=== PATIENT | female | born 1960 | race Caucasian/White ===

== ENCOUNTER 2023-01-11 13:30 | Day surgery (SDC) | payer OTHER, SELFPAY ==
[2023-01-11 14:22] VITALS: BP 131/73; PULSE 69; RESP 131; TEMP 37; BMI 28.1
[2023-01-11] MEDS: LACTATED RINGERS 1,000 ML 42 ML IV (14:49)
[2023-01-11 14:51] VITALS: BMI 28.1
--- NOTE | 2023-01-11 14:54 | PM.HP.1 ---
History of Present Illness History of Present Illness Date Patient Seen: 01/11/23 Chief complaint: Dx Colonoscopy Narrative: History of colon polyps with last colonoscopy 5 years ago Patient History Medical History (Updated 01/11/23 @ 14:21 by Adalgisa Feng RN) Anxiety Bursitis disorder Cyst, meniscus, knee Meniscus, medial, posterior horn derangement Surgical History (Updated 01/11/23 @ 14:51 by Adalgisa Feng RN) History of bunionectomy Family & Social History Social History: household members spouse Tobacco & Substance use: Smoking Status Never smoker alcohol intake frequency a few times a week Substance Use Type does not use Meds Home Medications and Allergies Home Medications Medication Instructions Recorded Confirmed Type venlafaxine besylate See Rx Instructions .Route .COMPLEX 01/11/23 01/11/23 History Allergies Allergy/AdvReac Type Severity Reaction Status Date / Time Penicillins Allergy Swelling Verified 01/11/23 14:15 of the Eye Exam Vital Signs (past 8 hours): - 01/11/23 14:22 Temperature 98.6 F Pulse Rate 69 Respiratory Rate 131 H Blood Pressure 131/73 Oxygen Delivery Method Room Air Oxygen Delivery Method Room Air Narrative Exam Narrative: Oropharynx free of lesions Chest clear to auscultation percussion Cardiac exam reveals no S3 or murmur Assessment & Plan Assessment & Plan narrative: New history of adenomatous colon polyps. Need for follow-up colonoscopy. Risks, benefits, alternatives have been explained. Time Spent With Patient Critical Care time: I spent a total of [] minutes of critical care time on this patient's care today; this time is exclusive of procedural time.
--- NOTE | 2023-01-11 14:55 | PM.OP.COLON ---
Operative Date/Time/Diagnoses Date of procedure: 01/11/23 Pre-op diagnosis: See indication and findings Procedure & Clinicians Study performed: Colonoscopy Indications: History of colon polyps Surgeon: Augie Ruiz Procedure Notes Procedure in detail: After informed consent the patient was placed in left lateral decubitus position. The video colonoscope was introduced into the rectum and slowly advanced cecum. Preparation was good. On slow withdrawal mucosa was carefully examined. The scope was removed. The patient tolerated procedure well. Blood loss none Complications none Findings 1. Normal colonoscopy to cecum Patient should have follow-up colonoscopy in 7-10 years
[2023-01-11 15:36] VITALS: BP 110/72; PULSE 67; RESP 16; TEMP 37.1; O2SAT 98
[2023-01-11 15:41] VITALS: BP 112/81; PULSE 81; RESP 15; O2SAT 98
[2023-01-11 15:45] VITALS: BP 118/74; PULSE 79; RESP 18; O2SAT 100
[2023-01-11 16:00] VITALS: BP 141/88; PULSE 72; RESP 11; TEMP 37; O2SAT 99
[2023-01-11 16:06] VITALS: BP 134/84; PULSE 73; RESP 11; TEMP 36.4; O2SAT 99
== END 2023-01-11 16:10 | disposition home or self-care (01) ==
PROVIDERS: Referring Provider Internal Medicine Gastroenterology; Visit Provider Internal Medicine Gastroenterology
PROC: 0DJD8ZZ Inspection of Lower Intestinal Tract, Via Natural or Artificial Opening Endoscopic (ICD-10-PCS; CPT 45378; principal; 2023-01-11 14:30)
DX: Z12.11 Encounter for screening for malignant neoplasm of colon (principal); Z86.010 Personal history of colon polyps
CPT/HCPCS: 45378; J2704

== ENCOUNTER → 2023-05-25 13:10 | Outpatient (CLI) | payer OTHER, SELFPAY ==
--- NOTE | 2023-05-25 | DI.MG.S_ITS ---
BILATERAL DIGITAL SCREENING MAMMOGRAM 3D/2D WITH CAD: 05/25/2023 CLINICAL: Routine screening. No prior exams were available for comparison. Both breasts are heterogeneously dense, which may obscure small masses (category c / 51-75% glandular tissue). Current study was also evaluated with a Computer Aided Detection (CAD) system. No significant masses, calcifications, or other findings are seen in either breast. IMPRESSION: NEGATIVE There is no mammographic evidence of malignancy. A 1 year screening mammogram is recommended. Based on the Tyrer Cuzick model (a risk assessment model) the patient's lifetime risk is 9.6% and her 10 year risk is 4.5%. According to the ACR, ACS, and NCCN guidelines, an annual breast MRI exam along with mammogram is recommended if the patient's lifetime risk is 20% or greater. This exam was interpreted at Station ID: [id number]. NOTE: For mammograms, a report in lay terms will be sent to the patient. Approximately 15% of breast malignancies will not be visualized mammographically. In the management of a palpable breast mass, a negative mammogram must not discourage biopsy of a clinically suspicious lesion. Electronically Signed By: Pedro locke/marcia:05/25/2023 16:42:42 letter sent: Normal Exam ACR BI-RADS Category 1: Negative [id number]
== END ==
PROVIDERS: Family Provider Family Medicine; PCP Family Medicine; Referring Provider Family Medicine; Visit Provider Family Medicine
DX: Z12.31 Encounter for screening mammogram for malignant neoplasm of breast (principal)
CPT/HCPCS: 77063; 77067

== ENCOUNTER → 2023-06-12 08:52 | Outpatient (CLI) | payer OTHER, SELFPAY ==
[2023-06-12 10:01] LABS: Hematocrit 38.5 % (36-46); Mean Corpuscular HGB Conc 33.8 % (30-36); Mean Corpuscular Hemoglobin 30.9 PG (26-34); Mean Corpuscular Volume 91.3 fL (80-100); Platelet Count 292 X10^3/uL (150-400); Red Blood Cell Count 4.22 X10^6/uL (4.0-5.2); Red Cell Distribution Width 12.8 % (11.6-14.8); White Blood Cell Count 5.7 X10^3/uL (4.5-11.0)
[2023-06-12 10:06] LABS: Alanine Aminotransferase 23 IU/L (<35); Albumin 4.1 g/dL (3.5-5.0); Albumin Globulin Ratio 1.4 (1.0-2.8); Alkaline Phosphatase 80 U/L (38-126); Aspartate Aminotransferase 31 IU/L (14-36); BUN Creatinine Ratio 23.6 (6-22); Bilirubin Total 0.6 mg/dL (0.2-1.3); Blood Urea Nitrogen 17 mg/dL (7-17); Calcium 8.9 mg/dL (8.4-10.2); Carbon Dioxide 29 mmol/L (22-32); Chloride 104 mmol/L (98-107); Cholesterol 273 mg/dL (140-199); Estimated Glomerular Filt Rate > 60 mL/min (>60); Glucose 101 mg/dL (80-110); HDL Cholesterol 59 mg/dL (40-60); HEMOLYSIS < 15 (0-50); LDL Cholesterol Calculated 189 mg/dL (<100); Potassium 4.4 mmol/L (3.4-5.1); Sodium 137 mmol/L (137-145); Total Protein 7.1 g/dL (6.3-8.2); Triglycerides 123 mg/dL (35-150)
[2023-06-12 10:10] LABS: High Sensitivity CRP - Cardiac 2.2 mg/L (1.0-3.0)
[2023-06-12 10:26] LABS: Vitamin D 25 Hydroxy (D3) 49.8 ng/mL (30.0-100.0)
[2023-06-12 10:50] LABS: TSH w/ Reflex to FT4 1.71 uIU/mL (0.47-4.68)
[2023-06-13 03:12] LABS: Labcorp Hemoglobin (Hb) A1c 5.6 % (4.8-5.6)
== END ==
PROVIDERS: Family Provider Family Medicine; PCP Family Medicine; Referring Provider Family Medicine; Visit Provider Family Medicine
DX: E55.9 Vitamin D deficiency, unspecified (principal); E66.3 Overweight; E78.5 Hyperlipidemia, unspecified; G47.00 Insomnia, unspecified; J30.2 Other seasonal allergic rhinitis; R73.03 Prediabetes; R73.9 Hyperglycemia, unspecified
CPT/HCPCS: 36415; 80053; 80061; 82306; 83036; 84443; 85027; 86140

== ENCOUNTER 2023-07-20 10:00 | Outpatient (RCR) | payer OTHER, SELFPAY ==
--- NOTE | 2023-06-01 17:43 | PT.OIE ---
Current Diagnoses Pain in left arm (06/01/23) Past Medical History (Last Reviewed 05/08/23 @ 10:08 by Natalie Carrillo PA-C) Anxiety (~2002) Bursitis disorder Chicken pox (~1961) Chronic back pain (~1977) Cyst, meniscus, knee Meniscus, medial, posterior horn derangement Past Surgical History (Last Reviewed 05/08/23 @ 10:08 by Natalie Carrillo PA-C) Anesthesia History of bunionectomy History of knee surgery Visit Care Team Role Provider Type Tasia Kellogg DO Attending Provider Physician Family Provider Primary Care Provider Referring Provider Specialty: Medical Address: [address] [place] [address], [address], [place], [address] Email: [email or web address] Physical Therapy Initial Evaluation PT-OP-A Visit Information Start: 06/01/23 16:41 Freq: Status: Active Protocol: Document 06/01/23 17:27 ED (Rec: 06/01/23 17:43 ED [id number]) Out-Patient Physical Therapy Visit Information Visit Information Visit Type Initial Evaluation Visit Note 1 Visit Start Time 16:45 Visit Stop Time 17:30 Total Visit Minutes 45 Visit Number 1 PT-OP-B Current Condition Start: 06/01/23 16:41 Freq: Status: Active Protocol: Document 06/01/23 17:27 ED (Rec: 06/01/23 17:43 ED [id number]) Current Condition History of Current Condition Current Complaints January History of Current Condition Pt states she developed pain along wrist extensors starting around January. 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 It is worse at night and wakes her up from sleeping consistently, and it responds well to slow stretch but the stretch itself starts off very painful. States that she was traveling recently and took time away from desk work which seemed to help slightly. Pt notes she has 5# dumbbells at home, a TRX strap, and she just purchased a flexbar but doesn't know what to do with them. She also notes some hand pain in her joints and is wondering if that's related at all. PT-OP-C Subjective Start: 06/01/23 16:41 Freq: Status: Active Protocol: Document 06/01/23 17:27 ED (Rec: 06/01/23 17:43 ED [id number]) OP-PT Subjective Patient Comments Patient Reported Progress Same OP-PT Pain Assessment Location L dorsal forearm Intensity 5 Scale Used Numeric (0 - 10) Description Sharp,Tender Frequency Frequent Pain Aggravating Factors Position,Activity PT-OP-K Range of Motion Start: 06/01/23 16:41 Freq: Status: Active Protocol: Document 06/01/23 17:27 ED (Rec: 06/01/23 17:43 ED [id number]) Elbow/Forearm Range of Motion Elbow/Forearm Right Active Elbow/Forearm ROM WFL Yes Left Elbow/Forearm ROM WFL Yes Wrist Goniometric Range of Motion Wrist Right Flexion Active (degrees) 90 Extension Active (degrees) 70 Left Flexion Active (degrees) 90 Extension Active (degrees) 70 PT-OP-L Special Tests Start: 06/01/23 16:41 Freq: Status: Active Protocol: Document 06/01/23 17:27 ED (Rec: 06/01/23 17:43 ED [id number]) Special Tests Elbow Special Tests Lateral Epicondylitis Extended Test Results + Comments pain during resisted wrist extension PT-OP-Q Treatments Start: 06/01/23 16:41 Freq: Status: Active Protocol: Document 06/01/23 17:27 ED (Rec: 06/01/23 17:43 ED [id number]) Therapeutic Exercises Prone Exercises cat camel Reps/Minutes x10 Sitting Exercises wrist flex/ext stretch Side bilateral Reps/Minutes x30-60'' wrist extension/flexion strength Side left Resistance 5# Reps/Minutes 1x10 Comments focus on isometrics and eccentrics Standing Exercises bicep curl Side bilateral Resistance 5# Reps/Minutes 9x53-22 PT-OP-T Assessment and Plan Start: 06/01/23 16:41 Freq: Status: Active Protocol: Document 06/01/23 17:27 ED (Rec: 06/01/23 17:43 ED [id number]) Physical Therapy Assessment Rehab Potential Rehabilitation Potential Good Evaluation Complexity Number of Personal Factors/Comorbidities 1-2 Number of Body Systems Impaired 1-2 Clinical Presentation at Evaluation Stable Impairments Impairments Functional Activities,Pain, Sensation,Strength Goals Three Impairment strength Short Term Goal (STG) Pt will be able to perform resisted wrist extension using >5# c/ pain <2/10. STG Duration 3 weeks Senior Care Goal (LTG) Pt will be able to perform gripping activities and UE resistance exercises c/o pain. LTG Duration 8 weeks Two Impairment Pain Short Term Goal (STG) Pt will report 15% improvement in forearm pain intensity/ frequency. STG Duration 3 weeks Senior Care Goal (LTG) Pt will report 50% improvement in forearm pain intensity/ frequency. LTG Duration 6 weeks One Impairment HEP Short Term Goal (STG) Pt will report performing HEP >4 days/week. STG Duration 2 weeks Scientist Electronics Goal (LTG) Pt will report performing HEP >4 days/week. LTG Duration 6 weeks Assessment Summary Assessment Pt reported to PT c/ complaints of L forearm pain which started around January. Her presentation was consistent c/ lateral epicondyalgia or tennis elbow. She demonstrated normal wrist ROM but had positive pain test during resisted wrist extension and passive wrist extension stretching. Pt provided many exercises to stretch and strengthen forearm using dumbbells, TRX straps, and flexbar that she purchased . PT informed patient that it may take a while for complete resolution of symptoms and it is important to stay consistent in performing the HEP. Physical Therapy Plan Frequency and Duration Frequency of Treatment 1x/Week Duration of treatment (weeks) 10 Plan of Care Start Date 06/01/23 Plan of Care End Date 08/30/23 Therapeutic Interventions Therapeutic Interventions Manual Therapy,Neuromuscular Re-education,Self-Care/Home Management,Soft Tissue Mobilization,Therapeutic Activities,Therapeutic Exercises Modalities Cold Pack/Ice Massage,Electric Stimulation,Hot Packs, Ultrasound Next Visit Focus/Plan Next Note Type Treatment Note Next Visit Plan review HEP (wrist extension/ flexion stretch/strength, flexbar use, TRX row, bicep curl, cat camel), elbow mobs?
--- NOTE | 2023-06-01 17:44 | PT.OPPOC ---
Physical, Occupational & Speech Therapy At [facility] Current Diagnoses Pain in left arm (06/01/23) Visit Care Team Role Provider Type Tasia Kellogg DO Attending Provider Physician Family Provider Primary Care Provider Referring Provider Specialty: Medical Address: [address] [place] [address], [address], [place], [address] Email: [email or web address] Plan Of Care PT-OP-T Assessment and Plan Start: 06/01/23 16:41 Freq: Status: Active Protocol: Document 06/01/23 17:27 ED (Rec: 06/01/23 17:43 ED [id number]) Physical Therapy Assessment Rehab Potential Rehabilitation Potential Good Evaluation Complexity Number of Personal Factors/Comorbidities 1-2 Number of Body Systems Impaired 1-2 Clinical Presentation at Evaluation Stable Impairments Impairments Functional Activities,Pain, Sensation,Strength Goals Three Impairment strength Short Term Goal (STG) Pt will be able to perform resisted wrist extension using >5# c/ pain <2/10. STG Duration 3 weeks Drywall Hanger Goal (LTG) Pt will be able to perform gripping activities and UE resistance exercises c/o pain. LTG Duration 8 weeks Two Impairment Pain Short Term Goal (STG) Pt will report 15% improvement in forearm pain intensity/ frequency. STG Duration 3 weeks Group Home Goal (LTG) Pt will report 50% improvement in forearm pain intensity/ frequency. LTG Duration 6 weeks One Impairment HEP Short Term Goal (STG) Pt will report performing HEP >4 days/week. STG Duration 2 weeks Drywall Hanger Goal (LTG) Pt will report performing HEP >4 days/week. LTG Duration 6 weeks Assessment Summary Assessment Pt reported to PT c/ complaints of L forearm pain which started around January. Her presentation was consistent c/ lateral epicondyalgia or tennis elbow. She demonstrated normal wrist ROM but had positive pain test during resisted wrist extension and passive wrist extension stretching. Pt provided many exercises to stretch and strengthen forearm using dumbbells, TRX straps, and flexbar that she purchased . PT informed patient that it may take a while for complete resolution of symptoms and it is important to stay consistent in performing the HEP. Physical Therapy Plan Frequency and Duration Frequency of Treatment 1x/Week Duration of treatment (weeks) 10 Plan of Care Start Date 06/01/23 Plan of Care End Date 08/30/23 Therapeutic Interventions Therapeutic Interventions Manual Therapy,Neuromuscular Re-education,Self-Care/Home Management,Soft Tissue Mobilization,Therapeutic Activities,Therapeutic Exercises Modalities Cold Pack/Ice Massage,Electric Stimulation,Hot Packs, Ultrasound Next Visit Focus/Plan Next Note Type Treatment Note Next Visit Plan review HEP (wrist extension/ flexion stretch/strength, flexbar use, TRX row, bicep curl, cat camel), elbow mobs? Plan of Care Dates Plan of Care Start Date 06/01/23 Plan of Care End Date 08/30/23 Electronically Signed by: José Luis Valdovinos, PT 06/01/23 7202 If you are in agreement with this Plan of Care, please return a signed and dated copy. I have reviewed this Plan of Care and certify that the skilled therapy services above are required to meet the patient?s needs. Physician Signature Date Printed Name and Credentials Clinical Instructor Signature Printed Name and Credentials
--- NOTE | 2023-06-13 09:01 | PT.OTN ---
Current Diagnoses Pain in left arm (06/13/23) Physical Therapy Treatment Note PT-OP-A Visit Information Start: 06/01/23 16:41 Freq: Status: Active Protocol: Document 06/13/23 08:58 ED (Rec: 06/13/23 09:01 ED [id number]) Out-Patient Physical Therapy Visit Information Visit Information Visit Type Treatment Note Visit Note 2 Visit Start Time 08:15 Visit Stop Time 08:55 Total Visit Minutes 40 Visit Number 2 PT-OP-B Current Condition Start: 06/01/23 16:41 Freq: Status: Active Protocol: Document 06/01/23 17:27 ED (Rec: 06/01/23 17:43 ED [id number]) Current Condition History of Current Condition Current Complaints January History of Current Condition Pt states she developed pain along wrist extensors starting around January. 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 It is worse at night and wakes her up from sleeping consistently, and it responds well to slow stretch but the stretch itself starts off very painful. States that she was traveling recently and took time away from desk work which seemed to help slightly. Pt notes she has 5# dumbbells at home, a TRX strap, and she just purchased a flexbar but doesn't know what to do with them. She also notes some hand pain in her joints and is wondering if that's related at all. PT-OP-C Subjective Start: 06/01/23 16:41 Freq: Status: Active Protocol: Document 06/13/23 08:58 ED (Rec: 06/13/23 09:01 ED [id number]) OP-PT Subjective Patient Comments Patient Comments Pt states that she has been doing her exercises and noticed some small improvements. States that she had less pain at night. Denies any significant discomfort during the HEP. PT-OP-K Range of Motion Start: 06/01/23 16:41 Freq: Status: Active Protocol: Document 06/01/23 17:27 ED (Rec: 06/01/23 17:43 ED [id number]) Elbow/Forearm Range of Motion Elbow/Forearm Right Active Elbow/Forearm ROM WFL Yes Left Elbow/Forearm ROM WFL Yes Wrist Goniometric Range of Motion Wrist Right Flexion Active (degrees) 90 Extension Active (degrees) 70 Left Flexion Active (degrees) 90 Extension Active (degrees) 70 PT-OP-L Special Tests Start: 06/01/23 16:41 Freq: Status: Active Protocol: Document 06/01/23 17:27 ED (Rec: 06/01/23 17:43 ED [id number]) Special Tests Elbow Special Tests Lateral Epicondylitis Extended Test Results + Comments pain during resisted wrist extension PT-OP-Q Treatments Start: 06/01/23 16:41 Freq: Status: Active Protocol: Document 06/13/23 08:58 ED (Rec: 06/13/23 09:01 ED [id number]) Therapeutic Exercises Sitting Exercises thoracic rotation Reps/Minutes 2x10 wrist flex/ext stretch Side bilateral Reps/Minutes x30-60'' wrist extension/flexion strength Side left Resistance 5#-10# Reps/Minutes 2x10 Comments focus on isometrics and eccentrics Standing Exercises sup/pro Resistance dowel + 2# Reps/Minutes 1x20 cable row Resistance L2 Reps/Minutes [id number] bicep curl Side bilateral Resistance 5# Reps/Minutes [id number] Comments hammer curl, reverse curl, normal curl PT-OP-T Assessment and Plan Start: 06/01/23 16:41 Freq: Status: Active Protocol: Document 06/13/23 08:58 ED (Rec: 06/13/23 09:01 ED [id number]) Physical Therapy Assessment Assessment Summary Assessment Worked on a variety of gripping activities and isolation of forearm flexors and extensors. Pt tolerated treatment well and stated the exercises were all tolerable for her to perform. Added reverse curls, hammer curls, and seated thoracic rotation to her HEP. Physical Therapy Plan Frequency and Duration Frequency of Treatment 1x/Week Duration of treatment (weeks) 10 Plan of Care Start Date 06/01/23 Plan of Care End Date 08/30/23 Next Visit Focus/Plan Next Note Type Treatment Note Next Visit Plan review HEP (wrist extension/ flexion stretch/strength, flexbar use, TRX row, bicep curl, cat camel), elbow mobs?
--- NOTE | 2023-07-20 10:47 | PT.OTN ---
Current Diagnoses Pain in left arm (07/20/23) Physical Therapy Treatment Note PT-OP-A Visit Information Start: 06/01/23 16:41 Freq: Status: Active Protocol: Document 07/20/23 10:42 ED (Rec: 07/20/23 10:44 ED [id number]) Out-Patient Physical Therapy Visit Information Visit Information Visit Type Treatment Note Visit Note 3 Visit Start Time 10:00 Visit Stop Time 10:40 Total Visit Minutes 40 Visit Number 3 PT-OP-B Current Condition Start: 06/01/23 16:41 Freq: Status: Active Protocol: Document 06/01/23 17:27 ED (Rec: 06/01/23 17:43 ED [id number]) Current Condition History of Current Condition Current Complaints January History of Current Condition Pt states she developed pain along wrist extensors starting around January. 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 It is worse at night and wakes her up from sleeping consistently, and it responds well to slow stretch but the stretch itself starts off very painful. States that she was traveling recently and took time away from desk work which seemed to help slightly. Pt notes she has 5# dumbbells at home, a TRX strap, and she just purchased a flexbar but doesn't know what to do with them. She also notes some hand pain in her joints and is wondering if that's related at all. PT-OP-C Subjective Start: 06/01/23 16:41 Freq: Status: Active Protocol: Document 07/20/23 10:42 ED (Rec: 07/20/23 10:44 ED [id number]) OP-PT Subjective Patient Comments Patient Comments Pt states that her elbow is still bothering her. Notes that she does some of the exercises but not in a focused state and not very consistently. PT-OP-K Range of Motion Start: 06/01/23 16:41 Freq: Status: Active Protocol: Document 06/01/23 17:27 ED (Rec: 06/01/23 17:43 ED [id number]) Elbow/Forearm Range of Motion Elbow/Forearm Right Active Elbow/Forearm ROM WFL Yes Left Elbow/Forearm ROM WFL Yes Wrist Goniometric Range of Motion Wrist Right Flexion Active (degrees) 90 Extension Active (degrees) 70 Left Flexion Active (degrees) 90 Extension Active (degrees) 70 PT-OP-L Special Tests Start: 06/01/23 16:41 Freq: Status: Active Protocol: Document 06/01/23 17:27 ED (Rec: 06/01/23 17:43 ED [id number]) Special Tests Elbow Special Tests Lateral Epicondylitis Extended Test Results + Comments pain during resisted wrist extension PT-OP-Q Treatments Start: 06/01/23 16:41 Freq: Status: Active Protocol: Document 07/20/23 10:45 ED (Rec: 07/20/23 10:45 ED [id number]) Therapeutic Exercises Sitting Exercises thoracic rotation Reps/Minutes 2x10 wrist flex/ext stretch Side bilateral Reps/Minutes x30-60'' wrist extension/flexion strength Side left Resistance 5#-10# Reps/Minutes 2x10 Comments focus on isometrics and eccentrics PT-OP-T Assessment and Plan Start: 06/01/23 16:41 Freq: Status: Active Protocol: Document 07/20/23 10:42 ED (Rec: 07/20/23 10:44 ED [id number]) Physical Therapy Assessment Goals Three Impairment strength Short Term Goal (STG) Pt will be able to perform resisted wrist extension using >5# c/ pain <2/10. STG Duration 3 weeks Vp Genetic Goal (LTG) Pt will be able to perform gripping activities and UE resistance exercises c/o pain. LTG Duration 8 weeks Two Impairment Pain Short Term Goal (STG) Pt will report 15% improvement in forearm pain intensity/ frequency. STG Duration 3 weeks Longterm Goal (LTG) Pt will report 50% improvement in forearm pain intensity/ frequency. LTG Duration 6 weeks One Impairment HEP Short Term Goal (STG) Pt will report performing HEP >4 days/week. STG Duration 2 weeks Vp Genetic Goal (LTG) Pt will report performing HEP >4 days/week. LTG Duration 6 weeks Assessment Summary Assessment PT provided patient with plan of wrist stretches followed by flexbar wrist ext eccentric and resisted wrist extension using dumbbell followed by radial nerve glides. Pt informed to do this 2x/day for a week and progress to 3x/day . Pt was receptive to input and hopeful about prognosis. Physical Therapy Plan Frequency and Duration Frequency of Treatment 1x/Week Duration of treatment (weeks) 10 Plan of Care Start Date 06/01/23 Plan of Care End Date 08/30/23 Next Visit Focus/Plan Next Note Type Treatment Note Next Visit Plan review HEP (wrist extension/ flexion stretch/strength, flexbar use, TRX row, bicep curl, cat camel), elbow mobs?
--- NOTE | 2023-08-16 15:47 | PT-OP ANOTE ---
PT left voicemail for patient to determine if she would like to be DC'd at this time or schedule further visits.
--- NOTE | 2023-08-17 07:20 | PT.OPDS ---
Current Diagnoses Pain in left arm (07/20/23) Visit Care Team Role Provider Type Tasia Kellogg DO Attending Provider Physician Family Provider Primary Care Provider Referring Provider Specialty: Medical Address: [address] [place] [address], [address], [place], [address] Email: [email or web address] Visit Number Visit Number 3 Discharge Summary PT-OP-B Current Condition Start: 06/01/23 16:41 Freq: Status: Active Protocol: Document 06/01/23 17:27 ED (Rec: 06/01/23 17:43 ED [id number]) Current Condition History of Current Condition Current Complaints January History of Current Condition Pt states she developed pain along wrist extensors starting around January. 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 It is worse at night and wakes her up from sleeping consistently, and it responds well to slow stretch but the stretch itself starts off very painful. States that she was traveling recently and took time away from desk work which seemed to help slightly. Pt notes she has 5# dumbbells at home, a TRX strap, and she just purchased a flexbar but doesn't know what to do with them. She also notes some hand pain in her joints and is wondering if that's related at all. PT-OP-C Subjective Start: 06/01/23 16:41 Freq: Status: Active Protocol: Document 07/20/23 10:42 ED (Rec: 07/20/23 10:44 ED [id number]) OP-PT Subjective Patient Comments Patient Comments Pt states that her elbow is still bothering her. Notes that she does some of the exercises but not in a focused state and not very consistently. PT-OP-K Range of Motion Start: 06/01/23 16:41 Freq: Status: Active Protocol: Document 06/01/23 17:27 ED (Rec: 06/01/23 17:43 ED [id number]) Elbow/Forearm Range of Motion Elbow/Forearm Right Active Elbow/Forearm ROM WFL Yes Left Elbow/Forearm ROM WFL Yes Wrist Goniometric Range of Motion Wrist Right Flexion Active (degrees) 90 Extension Active (degrees) 70 Left Flexion Active (degrees) 90 Extension Active (degrees) 70 PT-OP-L Special Tests Start: 06/01/23 16:41 Freq: Status: Active Protocol: Document 06/01/23 17:27 ED (Rec: 06/01/23 17:43 ED [id number]) Special Tests Elbow Special Tests Lateral Epicondylitis Extended Test Results + Comments pain during resisted wrist extension PT-OP-T Assessment and Plan Start: 06/01/23 16:41 Freq: Status: Active Protocol: Document 08/17/23 07:18 ED (Rec: 08/17/23 07:20 ED [id number]) Physical Therapy Assessment Goals Three Impairment strength Short Term Goal (STG) Pt will be able to perform resisted wrist extension using >5# c/ pain <2/10. STG Duration 3 weeks Slate Roofer Goal (LTG) Pt will be able to perform gripping activities and UE resistance exercises c/o pain. LTG Duration 8 weeks Two Impairment Pain Short Term Goal (STG) Pt will report 15% improvement in forearm pain intensity/ frequency. STG Duration 3 weeks Slate Roofer Goal (LTG) Pt will report 50% improvement in forearm pain intensity/ frequency. LTG Duration 6 weeks One Impairment HEP Short Term Goal (STG) Pt will report performing HEP >4 days/week. STG Duration 2 weeks Slate Roofer Goal (LTG) Pt will report performing HEP >4 days/week. LTG Duration 6 weeks Assessment Summary Assessment Pt will be discharged from PT at this time. Pt last seen for lateral epicondyalgia. Pt has had moderate relief from PT but admitted to not performing the HEP to the best of her ability and only doing some of the movements. At last PT session, PT and patient discussed performing exercises with more focus and more intentionally. PT reached out via phone to discuss current POC but was unable to reach patient. Physical Therapy Plan Discharge Physical Therapy Discharge Reasons No Longer Attending PT
== END 2023-08-21 14:12 | disposition home or self-care (01) ==
LOC: PHYS 10:00
PROVIDERS: Family Provider Family Medicine; PCP Family Medicine; Referring Provider Family Medicine; Visit Provider Family Medicine
DX: M79.602 Pain in left arm (principal)
CPT/HCPCS: 97110; 97161

== ENCOUNTER → 2023-09-08 15:19 | Outpatient (CLI) | payer OTHER, SELFPAY ==
--- NOTE | 2023-09-08 15:20 | DI.RAD.S_ITS ---
Bone Density Report Name: SAMIR SURESH Age: 63 Sex: Female Ethnicity: White Date of : 1960 Indication: postmenopausal; screening for osteoporosis; Referring Provider: JIM GUERRERO Study: Bone densitometry was performed. Exam Date: September 08, 2023 Accession number: [id number] Bone Density: Region BMD T-score Z-score Classification AP Spine(L2, L3, L4) 1.212 1.2 3.0 Normal Femoral Neck (Left) 0.715 -1.2 0.3 Osteopenia Total Hip (Left) 0.917 -0.2 1.0 Normal Femoral Neck (Right) 0.726 -1.1 0.4 Osteopenia Total Hip (Right) 0.913 -0.2 1.0 Normal Total Hip Mean 0.915 -0.2 1.0 Normal World Health Organization criteria for BMD impression classify patients as: Normal (T-score at or above -1.0), Osteopenia (T-score between -1.0 and -2.5), or Osteoporosis (T-score at or below -2.5). 10-year Fracture Risk(1): Major Osteoporotic Fracture 8.1% Hip Fracture 0.7% Reported Risk Factors: [place] (), Neck BMD=0.715, BMI=29.0 (1) FRAX(R) Version 3.08. Fracture probability calculated for an untreated patient. Fracture probability may be lower if the patient has received treatment. Impression: The patient has low bone mass, based on the Left Femoral Neck T-score. The patient has an estimated ten-year risk of hip fracture of 0.7% and an estimated ten-year risk of major fracture of 8.1%, based on the WHO FRAX algorithm. Discussion: BONE DENSITY IS LOW AT ONE OR MORE SKELETAL SITES. This patient's lowest T-score is low at one or more skeletal sites. It meets the World Health Organization's (WHO) criteria for low bone mass (T-score between -1.0 and -2.5). The patient's 10-year risk of fracture as calculated by FRAX is less than the threshold where pharmacological therapy is recommended by the National Osteoporosis Foundation (NOF). However, all treatment decisions require clinical judgment and consideration of individual patient factors, including patient preferences, comorbidities, previous drug use, risk factors not captured in the FRAX model (e.g., frailty, falls, vitamin D deficiency, increased bone turnover, interval significant decline in bone density) and possible under or overestimation of fracture risk by FRAX. The patient should follow a healthful lifestyle (good nutrition with adequate calcium and vitamin D, and appropriate weight-bearing exercise). Follow-Up: Consider repeating this study in 2 to 3 years to reassess this patient's status, or sooner if there is some new clinical indication. Reported by: AGUILAR WU M.D. on 09/08/2023 3:50:00 PM.
== END ==
PROVIDERS: Family Provider Family Medicine; PCP Family Medicine; Referring Provider Family Medicine; Visit Provider Family Medicine
DX: Z13.820 Encounter for screening for osteoporosis (principal); N95.1 Menopausal and female climacteric states; M85.852 Other specified disorders of bone density and structure, left thigh
CPT/HCPCS: 77080

== ENCOUNTER → 2024-06-19 10:53 | Outpatient (CLI) | payer OTHER, SELFPAY ==
[2024-06-19 19:27] LABS: Alanine Aminotransferase 18 IU/L (<35); Albumin 4.1 g/dL (3.5-5.0); Albumin Globulin Ratio 1.5 (1.0-2.8); Alkaline Phosphatase 78 U/L (38-126); Aspartate Aminotransferase 28 IU/L (14-36); BUN Creatinine Ratio 17.3 (6-22); Bilirubin Total 0.6 mg/dL (0.2-1.3); Blood Urea Nitrogen 14 mg/dL (7-17); Calcium 9.3 mg/dL (8.4-10.2); Carbon Dioxide 25 mmol/L (22-32); Chloride 104 mmol/L (98-107); Cholesterol 266 mg/dL (140-199); Estimated Glomerular Filt Rate > 60 mL/min (>60); Globulin 2.7 g/dL (1.7-4.1); Glucose 95 mg/dL (80-110); HDL Cholesterol 58 mg/dL (40-60); HEMOLYSIS < 15 (0-50); LDL Cholesterol Calculated 187 mg/dL (<100); Potassium 4.7 mmol/L (3.4-5.1); Sodium 137 mmol/L (137-145); Total Protein 6.8 g/dL (6.3-8.2); Triglycerides 103 mg/dL (35-150)
[2024-06-19 19:32] LABS: High Sensitivity CRP - Cardiac 1.6 mg/L (1.0-3.0)
[2024-06-19 21:25] LABS: Hemoglobin A1C% w Est Avg Glu 5.4 % (4.0-6.0)
== END ==
PROVIDERS: Family Provider Family Medicine; PCP Family Medicine; Referring Provider Family Medicine; Visit Provider Family Medicine
DX: E78.5 Hyperlipidemia, unspecified (principal); R73.03 Prediabetes; Z13.228 Encounter for screening for other metabolic disorders; R73.9 Hyperglycemia, unspecified
CPT/HCPCS: 36415; 80053; 80061; 83036; 86140

== ENCOUNTER → 2024-09-19 18:43 | Outpatient (CLI) | payer OTHER, SELFPAY ==
--- NOTE | 2024-09-19 18:45 | DI.MRI.S_ITS ---
PROCEDURE: MR CERVICAL SPINE WO CON INDICATIONS: Cervical Radiculopathy TECHNIQUE: Noncontrast sagittal T1 spin echo and T2 fast spin echo, sagittal STIR, foraminal oblique sagittal T2 fast spin echo, and axial gradient echo or T2 fast spin echo through the cervical spine. COMPARISON: None. FINDINGS: Image quality: Excellent. Alignment and Curvature: Straightening of the normal cervical lordosis. Bone Marrow: Marrow demonstrates normal overall signal. Spinal Cord: Visualized spinal cord has normal size and signal. No cerebellar tonsillar herniation. Paraspinous Soft Tissues: No paravertebral masses. Prevertebral soft tissues are normal in thickness. C2-C3: Normal appearance. C3-C4: Disc desiccation and mild posterior disc osteophyte complex. Mild facet and uncovertebral arthropathy. No central canal or neural foraminal stenosis. C4-C5: Disc desiccation and mild posterior disc osteophyte complex. No central canal or neural foraminal stenosis. C5-C6: Disc desiccation and mild height loss. Mild posterior disc osteophyte complex. Mild central canal stenosis. Facet and uncovertebral arthropathy. Moderate left and no right neural foraminal stenosis. C6-C7: Disc desiccation and mild posterior disc osteophyte complex. No central canal stenosis. Facet and uncovertebral arthropathy. Moderate right and mild left neural foraminal stenosis. C7-T1: No central canal or neural foraminal stenosis. IMPRESSION: 1. Degenerative changes of the cervical spine as described above. 2. Mild central canal stenosis at C5-C6. 3. Moderate neural foraminal stenosis on the left at C5-C6 and right at C6-C7. Dictated by: Jaiden Rosas M.D. on 09/20/2024 at 9:29 Approved by: Jaiden Rosas M.D. on 09/20/2024 at 9:35
== END ==
LOC: MRI 18:43
PROVIDERS: Family Provider Family Medicine; PCP Family Medicine; Referring Provider Family Medicine; Visit Provider Family Medicine
DX: M47.22 Other spondylosis with radiculopathy, cervical region (principal); M48.02 Spinal stenosis, cervical region
CPT/HCPCS: 72141

== ENCOUNTER 2024-10-11 09:45 | Outpatient (RCR) | payer OTHER, SELFPAY ==
--- NOTE | 2024-09-19 18:00 | PT.OIE ---
Current Diagnoses Retention of urine, unspecified (09/19/24) Past Medical History (Last Updated 08/28/24 @ 07:53 by José Luis Darden DO) Acute thoracic back pain Anxiety (~2002) Bursitis disorder Chicken pox (~1961) Chronic back pain (~1977) Cyst, meniscus, knee Left forearm pain Meniscus, medial, posterior horn derangement Rib pain on right side Past Surgical History (Last Reviewed 05/08/23 @ 10:08 by Natalie Carrillo PA-C) Anesthesia History of bunionectomy History of knee surgery Visit Care Team Role Provider Type Tasia Kellogg DO Attending Provider Physician Family Provider Primary Care Provider Referring Provider Specialty: Medical Address: [address] [place] [address], [address], [place], [address] Email: [email or web address] Physical Therapy Initial Evaluation PT-OP-A Visit Information Start: 09/15/24 14:58 Freq: Status: Active Protocol: Document 09/19/24 10:46 LRN (Rec: 09/19/24 11:33 LRN [id number]) Out-Patient Physical Therapy Visit Information Visit Information Visit Type Initial Evaluation Visit Start Time 10:46 Visit Stop Time 11:30 Visit Number 1 Evaluation Information Evaluation Date 09/19/24 Precautions Precautions Neck pain and possible R shoulder radiculopathy. PT-OP-B Current Condition Start: 09/15/24 14:58 Freq: Status: Active Protocol: Document 09/19/24 10:46 LRN (Rec: 09/19/24 11:33 LRN [id number]) Current Condition History of Current Condition Onset Date 2 yrs ago Current Complaints Has to push her urine out to complete voiding & not leak on standing. History of Current Condition Insidious onset a couple years ago, pt noticed urine wasn't coming out unless she pushed out 4-5 times, otherwise when standing up after urinating she leaks. In the shower she reports having an urge to urinate and sometimes can't hold it, mostly occurs when she doesn't urinate before showering. Prior Treatments and Tests None Developmental History Developmental History 2G, 2P of vaginal births with tearing,nothing abnormal. Treatment Goals Patient/Caregiver Goals Pt goals: -Consistent with a HEP. -urinate w/o pushing and with no leakage on standing -elimate urge to urinate when water hits her in the shower ( happens 1x/wk). Personal Factors Other Personal Factors That May Effect For 5 wks have had R shoulder/ Therapy/Recovery back pain that may be due to pinched nerve and she is having an MRI tonight. Doesn 't tolerate sitting or standing well; supine relieves the R posterior shoulder pain . Type 1 BMs a couple times a week. PT-OP-C Subjective Start: 09/15/24 14:58 Freq: Status: Active Protocol: Document 09/19/24 10:46 LRN (Rec: 09/19/24 11:33 LRN [id number]) Patient Questionnaires Pelvic Pain and Urgency/Frequency Patient Symptom Scale Pelvic Pain Score 1 OP-PT Pain Assessment Pain Assessment Grid Paper Pain Assessment Grid Completed Yes Location R medial border of scapula Pain Location Details R Rhomboids near scapular border attachment, intensity not provided PT-OP-I Pelvic Floor Start: 09/15/24 14:58 Freq: Status: Active Protocol: Document 09/19/24 10:46 LRN (Rec: 09/19/24 11:33 LRN [id number]) Pelvic Floor Assessment Urine Urinary Symptoms Urge Sensation Other Urinary Symptoms PUshes to urinate more because when standing up she urinates more (doing this for a couple of years.) Leakage Size Small Leakage Cause Cough,Sneeze,Urge Leaks Per Day Once per week Nocturia 0 Pads Used In 24 Hours 0 Bowel Other Bowel Symptoms Pushing to have type 1 bowel mvmts only, and with travelling. Bowel Movement Frequency 1x/day [place] Stool Chart Comments 1, 3, 4. Type 1 a couple times a week. Pelvic Clock Pelvic Clock Other No tenderness with palpation. Prolapse Cystocele Grade 2 Rectocele Grade 1 Perineal Descent Resting Absent Bearing Absent Contraction Ability Voluntary Contraction Weak Voluntary Relaxation Moderate Manual Muscle Testing Left 1 Manual Muscle Testing Right 2 Manual Muscle Testing Anterior 3 Manual Muscle Testing Posterior 1 Number of Quick Contractions In 10 3 Seconds Comments Pelvic Floor Comments Muscle Endurance: A PF contraction was felt for 10 secs, but weakened and not felt around the PF clock. Substitute ms engaged for PF contraction. PT-OP-J Posture/Palpation/Skin Start: 09/15/24 14:58 Freq: Status: Active Protocol: Document 09/19/24 10:46 LRN (Rec: 09/19/24 11:33 LRN [id number]) Posture Evaluation Position Standing Head/C-Spine Posture Side Bent Right,Forward Head Shoulder Posture (L) Elevated Pelvis Posture (R) Iliac Crest Superior,(L) PSIS Posterior Hip Posture (R) Externally Rotated Knee Posture (L) Genu Valgus,(R) Genu Valgus PT-OP-K Range of Motion Start: 09/15/24 14:58 Freq: Status: Active Protocol: Document 09/19/24 10:46 LRN (Rec: 09/19/24 11:33 LRN [id number]) Lumbar Spine Range of Motion Lumbar Spine Active Degrees Testing Position Standing Flexion 105 Extension 10 Rotation Left 45 Rotation Right 20 Lateral Flexion Left 15 Lateral Flexion Right 20 Comments Rot limited due to R shoulder pain. Hip Goniometric Range of Motion Hip Right Passive Testing Position Supine Abduction 50 Internal Rotation 45 External Rotation 85 Left Passive Testing Position Supine Abduction 45 Internal Rotation 35 External Rotation 65 PT-OP-M Strength Start: 09/15/24 14:58 Freq: Status: Active Protocol: Document 09/19/24 10:46 LRN (Rec: 09/19/24 11:33 LRN [id number]) Trunk Strength Trunk Manual Muscle Testing Rotation Left 3 Fair Rotation Right 4 Good Core Stabilization Otherwise strength is 5/5. Hip Strength Hip Manual Muscle Testing Right External Rotation 3 Fair Comments Strength is 5/5 except as indicated above. Left External Rotation 3 Fair Comments Strength is 5/5 except as indicated above. PT-OP-Q Treatments Start: 09/15/24 14:58 Freq: Status: Active Protocol: Document 09/19/24 10:46 LRN (Rec: 09/19/24 11:33 LRN [id number]) Self-Care/Home Management Treatment Education Other Education Discussed results of evaluation, goals, treatment, and plan of care (POC) with pt , discussed attendance/cx/dns policy; pt agreeable to evaluation, goals, treatment, attendance/cx/dns policy and POC. Activities Self-Care/Home Management Activities Discussed and educated pt in specifics for completion of in use of Bladder Diary and I/S in tracking for 1 week. Issued & reviewed HEP: Kegel ex's and discussed exercise of Quick Flicks, Long Holds and Aggravators. PT-OP-T Assessment and Plan Start: 09/15/24 14:58 Freq: Status: Active Protocol: Document 09/19/24 10:46 LRN (Rec: 09/19/24 11:33 LRN [id number]) Physical Therapy Assessment Rehab Potential Rehabilitation Potential Good Evaluation Complexity Number of Personal Factors/Comorbidities 1-2 Number of Body Systems Impaired 4 or More Clinical Presentation at Evaluation Evolving Impairments Impairments Activity Tolerance,Posture,ROM ,Soft Tissue Mobility,Strength ,Transfers Goals Four Impairment Type 1 BM's 2x/week Short Term Goal (STG) Pt will be able to perform bowel massage and improve bowel care. STG Duration 10/18/24 Road Production General Manager Goal (LTG) Pt will be able to improve BMs to type 3,4 (norm) 90% of the time or 1x every couple weeks . LTG Duration 12/13/24 Three Impairment Urge to urinate when in shower with water turned on Short Term Goal (STG) Pt will be educated and able to use the urge deference technique to reduce onset of the trigger of feeling water when in the shower, with pt able to make it to toilet with a sudden urge. STG Duration 10/18/24 Fdc Goal (LTG) Elimate urge to urinate when water hits her in the shower ( happens 1x/wk). LTG Duration 12/13/24 Two Impairment Urinary leakage after voiding on standing Short Term Goal (STG) Pt able to demonstrate proper core pressure mgmt for BM's voiding, transfers, and ADLs. STG Duration 10/18/24 Fdc Goal (LTG) Urinate w/o pushing and with no leakage on standing LTG Duration 12/13/24 One Impairment Pt lacks an independent self care HEP. Short Term Goal (STG) Pt will be educated and able to demonstrate transfers to lessen core abdominal pressure . STG Duration 10/18/24 Fdc Goal (LTG) Pt will be independent in a self care HEP for PF/hip/core strengthening and mobility ex' s (L hip AB, IR, ER & trunk R rot, L SB). 09/19/24: HEP: Kegels Quick and Long Holds. LTG Duration 12/13/24 progressed 09/19/24 Assessment Summary Assessment Pt is a 64 yo female presenting with urinary leakage on standing after voiding, resulting in pt pushing to complete voids, and urgency with a trigger of the feel of water in the shower if she had not pre-shower voided, due to PF weakness ( grade 2 cystocel) and bowel dysfunction of grade 1-2 rectocele (type 1 BM's 2x/week ). She has weakness of her hip ER's and trunk rotators. She has postural deviations of R hip in ER, valgus of knees, elevated Iliac crest and anterior PSIS, and changes at her head/neck shoulder from her R shoulder pain. The pt will benefit from skilled physical therapy for L hip ROM ex's, PF/hip/core strengthening, and pt education for postural corrections, methods to improve urinary voiding, normalizing bowel types and reduction of pt response to triggers through behavior modifications. Physical Therapy Plan Frequency and Duration Frequency of Treatment 1x/Week Duration of treatment (weeks) 12 Plan of Care Start Date 09/19/24 Plan of Care End Date 12/13/24 Therapeutic Interventions Therapeutic Interventions Home Exercise Program,Manual Therapy,Neuromuscular Re- education,Self-Care/Home Management,Soft Tissue Mobilization,Taping, Therapeutic Activities, Therapeutic Exercises Modalities Biofeedback Next Visit Focus/Plan Next Note Type Treatment Note Next Visit Plan 2nd visit treatment Review Bladder dairy and discussed fluid intake (AM/PM) , bowel movement frequency, nighttime voiding frequency, void time and times between void norms. Review Kegels for isolated PF contraction. Vemg biofeedback assessment. POC: Urge incontinence, cystocele, rectocele (leakage with sit<>stnd due to PF weakness), strengthening hip ER's and trunk rotators, posture corrections (caution: possible cervical radiculopathy). Biofeedback with vaginal sensor for PF >< awareness and strengthening, Education (core pressure mgmt, voiding positioning, urge deference for triggers, Bowel massage & bowel care), Manual therapy (lower abdomen & low back fascia), Therapeutic Exercises (PF/hip strength, and stretches: L hip AB, IR, ER & trunk R rot, L SB), Therapeutic Activities ( transfers/ADLs w/core pressure mgmt), Neuromuscular Reeducation (TA strengthening) .
--- NOTE | 2024-10-11 17:53 | PT.OTN ---
Current Diagnoses Retention of urine, unspecified (10/11/24) Physical Therapy Treatment Note PT-OP-A Visit Information Start: 09/15/24 14:58 Freq: Status: Active Protocol: Document 10/11/24 09:48 LRN (Rec: 10/11/24 10:33 LRN [id number]) Out-Patient Physical Therapy Visit Information Visit Information Visit Type Discharge Summary Visit Note Pt using cold pack to L upper back/shoulder during therapy. Visit Start Time 09:48 Visit Stop Time 10:29 Visit Number 2 Evaluation Information Evaluation Date 09/19/24 Precautions Precautions Neck pain and possible R shoulder radiculopathy. PT-OP-B Current Condition Start: 09/15/24 14:58 Freq: Status: Active Protocol: Document 09/19/24 10:46 LRN (Rec: 09/19/24 11:33 LRN [id number]) Current Condition History of Current Condition Onset Date 2 yrs ago Current Complaints Has to push her urine out to complete voiding & not leak on standing. History of Current Condition Insidious onset a couple years ago, pt noticed urine wasn't coming out unless she pushed out 4-5 times, otherwise when standing up after urinating she leaks. In the shower she reports having an urge to urinate and sometimes can't hold it, mostly occurs when she doesn't urinate before showering. Prior Treatments and Tests None Developmental History Developmental History 2G, 2P of vaginal births with tearing,nothing abnormal. Treatment Goals Patient/Caregiver Goals Pt goals: -Consistent with a HEP. -urinate w/o pushing and with no leakage on standing -elimate urge to urinate when water hits her in the shower ( happens 1x/wk). Personal Factors Other Personal Factors That May Effect For 5 wks have had R shoulder/ Therapy/Recovery back pain that may be due to pinched nerve and she is having an MRI tonight. Doesn 't tolerate sitting or standing well; supine relieves the R posterior shoulder pain . Type 1 BMs a couple times a week. PT-OP-C Subjective Start: 09/15/24 14:58 Freq: Status: Active Protocol: Document 10/11/24 09:48 LRN (Rec: 10/11/24 10:33 LRN [id number]) OP-PT Subjective Patient Comments Patient Comments Pinched nerve and finally got referral for PT. States she needs to quite PF therapy to start her upper back/neck/ shoulder PT. Doing Pilates video w/PF part. Patient Questionnaires Pelvic Pain and Urgency/Frequency Patient Symptom Scale Pelvic Pain Score 4 PT-OP-I Pelvic Floor Start: 09/15/24 14:58 Freq: Status: Active Protocol: Document 09/19/24 10:46 LRN (Rec: 09/19/24 11:33 LRN [id number]) Pelvic Floor Assessment Urine Urinary Symptoms Urge Sensation Other Urinary Symptoms PUshes to urinate more because when standing up she urinates more (doing this for a couple of years.) Leakage Size Small Leakage Cause Cough,Sneeze,Urge Leaks Per Day Once per week Nocturia 0 Pads Used In 24 Hours 0 Bowel Other Bowel Symptoms Pushing to have type 1 bowel mvmts only, and with travelling. Bowel Movement Frequency 1x/day [facility] Stool Chart Comments 1, 3, 4. Type 1 a couple times a week. Pelvic Clock Pelvic Clock Other No tenderness with palpation. Prolapse Cystocele Grade 2 Rectocele Grade 1 Perineal Descent Resting Absent Bearing Absent Contraction Ability Voluntary Contraction Weak Voluntary Relaxation Moderate Manual Muscle Testing Left 1 Manual Muscle Testing Right 2 Manual Muscle Testing Anterior 3 Manual Muscle Testing Posterior 1 Number of Quick Contractions In 10 3 Seconds Comments Pelvic Floor Comments Muscle Endurance: A PF contraction was felt for 10 secs, but weakened and not felt around the PF clock. Substitute ms engaged for PF contraction. PT-OP-J Posture/Palpation/Skin Start: 09/15/24 14:58 Freq: Status: Active Protocol: Document 09/19/24 10:46 LRN (Rec: 09/19/24 11:33 LRN [id number]) Posture Evaluation Position Standing Head/C-Spine Posture Side Bent Right,Forward Head Shoulder Posture (L) Elevated Pelvis Posture (R) Iliac Crest Superior,(L) PSIS Posterior Hip Posture (R) Externally Rotated Knee Posture (L) Genu Valgus,(R) Genu Valgus PT-OP-K Range of Motion Start: 09/15/24 14:58 Freq: Status: Active Protocol: Document 09/19/24 10:46 LRN (Rec: 09/19/24 11:33 LRN [id number]) Lumbar Spine Range of Motion Lumbar Spine Active Degrees Testing Position Standing Flexion 105 Extension 10 Rotation Left 45 Rotation Right 20 Lateral Flexion Left 15 Lateral Flexion Right 20 Comments Rot limited due to R shoulder pain. Hip Goniometric Range of Motion Hip Right Passive Testing Position Supine Abduction 50 Internal Rotation 45 External Rotation 85 Left Passive Testing Position Supine Abduction 45 Internal Rotation 35 External Rotation 65 PT-OP-M Strength Start: 09/15/24 14:58 Freq: Status: Active Protocol: Document 09/19/24 10:46 LRN (Rec: 09/19/24 11:33 LRN [id number]) Trunk Strength Trunk Manual Muscle Testing Rotation Left 3 Fair Rotation Right 4 Good Core Stabilization Otherwise strength is 5/5. Hip Strength Hip Manual Muscle Testing Right External Rotation 3 Fair Comments Strength is 5/5 except as indicated above. Left External Rotation 3 Fair Comments Strength is 5/5 except as indicated above. PT-OP-Q Treatments Start: 09/15/24 14:58 Freq: Status: Active Protocol: Document 10/11/24 09:48 LRN (Rec: 10/11/24 10:33 LRN [id number]) Therapeutic Exercises Supine Exercises Kegels Supine Exercise Name Quick & Long hold Contrations Comments Cued for relaxation of abdominals & to breath. Therapeutic Activity Therapeutic Activity ADLs w/Breath/Kegel Name Review of ADL w/Kegel/Breath handout Transfer w/Breath/Kegel Name Coordination of Breath/Kegel with trnasfers sup<>sit<>stand . Manual Therapy Treatment Consent Patient gave verbal consent for manual Yes treatment Soft Tissue Mobilization ILU massage Body Location ABdomen Mobilization Type Other Intensity/Depth Moderate Body Position Supine Comments PT massage f/b training and pt self massage. Self-Care/Home Management Treatment Education Other Education Discussed fluid intake (AM/PM) , bowel movement frequency, nighttime voiding frequency, void time and times between void norms. Activities Self-Care/Home Management Activities Issued and reviewed: Bladder irritants and ILU massage, Transfer mobility w/breath/ Kegel & ADLs w/breath/Kegel. PT-OP-T Assessment and Plan Start: 09/15/24 14:58 Freq: Status: Active Protocol: Document 10/11/24 09:48 LRN (Rec: 10/11/24 10:33 LRN [id number]) Physical Therapy Assessment Goals Four Impairment Type 1 BM's 2x/week Short Term Goal (STG) Pt will be able to perform bowel massage and improve bowel care. 10/11/24: Pt trained in ILU bowel massage with handout issued. STG Duration 10/18/24 (10/11/24: Goal partially met due to early discharge) Detention Goal (LTG) Pt will be able to improve BMs to type 3,4 (norm) 90% of the time or 1x every couple weeks . 10/11/24: With increased water her stools are type 4- 70% or time, type 1 1x/wk. LTG Duration 12/13/24 (10/11/24: Goal not met due to early discharge) Three Impairment Urge to urinate when in shower with water turned on Short Term Goal (STG) Pt will be educated and able to use the urge deference technique to reduce onset of the trigger of feeling water when in the shower, with pt able to make it to toilet with a sudden urge. STG Duration 10/18/24 (10/11/24: Goal not met) Food Tray Assembler Goal (LTG) Elimate urge to urinate when water hits her in the shower ( happens 1x/wk). 10/11/24: Pt reports can eliminate the urge if she voids prior to showering. LTG Duration 12/13/24 (10/11/24: MET GOAL) Two Impairment Urinary leakage after voiding on standing Short Term Goal (STG) Pt able to demonstrate proper core pressure mgmt for BM's voiding, transfers, and ADLs. 10/11/24: Pt educated in transfers sup<>sit<>stand with handout issued, pt was not able to demonstrate transfer with core pressure management without cuing. STG Duration 10/18/24 (10/11/24: Goal partially met due to early discharge) Detention Goal (LTG) Urinate w/o pushing and with no leakage on standing LTG Duration 12/13/24 (10/11/24: Goal not met) One Impairment Pt lacks an independent self care HEP. Short Term Goal (STG) Pt will be educated and able to demonstrate transfers to lessen core abdominal pressure . 10/11/24: Pt educated in transfers sup<>sit<>stand with handout issued, pt was not able to demonstrate transfer with core pressure management without cuing. STG Duration 10/18/24 (10/11/24: Goal partially met due to early discharge) Food Tray Assembler Goal (LTG) Pt will be independent in a self care HEP for PF/hip/core strengthening and mobility ex' s (L hip AB, IR, ER & trunk R rot, L SB). 09/19/24: HEP: Kegels Quick and Long Holds. LTG Duration 12/13/24 (10/11/24: goal partiall met due to early discharge.) Assessment Summary Assessment Pt is a 64 yo female who initially presented with urinary inocontinence on standing after voiding, resulting in pt pushing to complete voids. She had a trigger of feeling water when in the shower if not pre- voiding. Drink more, less bladder irritant, stop drinking early and through the day, start water intake earlier. She presented with grade 2 cystocele and bowel dysfunction of grade 1-2 rectocele (type 1 BM's 2x/week ). There was weakness of her hip ER's and trunk rotators and postural deviations including changes at her head/ neck shoulder from R shoulder pain. The pt has had some improvement with Kegel ex's but she attends today requesting discharge due to obtaining a new referral for treatment of R shoulder pain. The pt will seek PF physical therapy once her shoulder rehabitation is complete if it is still needed. Goals were not met due to early discharge . Physical Therapy Plan Frequency and Duration Frequency of Treatment 1x/Week Duration of treatment (weeks) 12 Plan of Care Start Date 09/19/24 Plan of Care End Date 12/13/24 Discharge Physical Therapy Discharge Reasons Patient Request Discharge Comments See assessment above. Thank you for your referral.
== END 2024-10-16 14:25 | disposition home or self-care (01) ==
LOC: PHYS 09:45
PROVIDERS: Family Provider Family Medicine; PCP Family Medicine; Referring Provider Family Medicine; Visit Provider Family Medicine
DX: R33.9 Retention of urine, unspecified (principal)
CPT/HCPCS: 97110; 97140; 97162; 97530; 97535

== ENCOUNTER 2024-12-09 09:00 | Outpatient (RCR) | payer OTHER, SELFPAY ==
--- NOTE | 2024-10-15 15:23 | PT.OIE ---
Current Diagnoses Stiffness of right shoulder, not elsewhere classified (10/15/24) Stiffness of other specified joint, not elsewhere classified (10/15/24) Spinal stenosis, site unspecified (10/15/24) Radiculopathy, cervical region (10/15/24) Pain in thoracic spine (10/15/24) Weakness (10/15/24) Past Medical History (Last Updated 08/28/24 @ 07:53 by José Luis Darden DO) Acute thoracic back pain Anxiety (~2002) Bursitis disorder Chicken pox (~1961) Chronic back pain (~1977) Cyst, meniscus, knee Left forearm pain Meniscus, medial, posterior horn derangement Rib pain on right side Past Surgical History (Last Reviewed 05/08/23 @ 10:08 by Natalie Carrillo PA-C) Anesthesia History of bunionectomy History of knee surgery Visit Care Team Role Provider Type Tasia Kellogg DO Attending Provider Physician Family Provider Primary Care Provider Referring Provider Specialty: Medical Address: [address] [place] [address], [address], [place], [facility] Email: [email or web address] Physical Therapy Initial Evaluation PT-OP-A Visit Information Start: 10/11/24 18:52 Freq: Status: Active Protocol: Document 10/15/24 13:42 NM (Rec: 10/15/24 14:59 NM [id number]) Out-Patient Physical Therapy Visit Information Visit Information Visit Type Initial Evaluation Visit Note 6 approved visits (2 used w/ eval) Visit Start Time 13:45 Visit Stop Time 14:30 Visit Number 1 Evaluation Information Evaluation Date 10/15/24 Precautions Precautions Hx of cervical stenosis PT-OP-B Current Condition Start: 10/11/24 18:52 Freq: Status: Active Protocol: Document 10/15/24 13:42 NM (Rec: 10/15/24 14:59 NM [id number]) Current Condition History of Current Condition Onset Date chronic; ongoing; most recent 08/19/24 Current Complaints pain, stiffness, tightness History of Current Condition Pt presents with R sided radicular symptoms. 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 [place] like it was just tightening up. She had an MRI, showing a pinched nerve. 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 About 3 weeks ago , she reports, that she had more time between when her pain would improve. She reports that 1 week ago, she continued to have less pain. Participates in pilates and yoga. Has tenderness over R scapula. She reports that she fell 6 years ago on her arm and caught herself, reports that would intermittently flare up but would go away with ibuprofen. Pt reports that the main trigger is driving. Pt denies numbness/ tingling, only pain shooting down her arm. She had an adjustment from Dr. Kellogg to address her ribs, which was initially painful; saw a massage therapist, which was also not helpful. Reports improvement in reaching especially behind back. 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 Hx herniated disc L4-5 Prior Treatments and Tests MRI cervical spine August 2024- Impression: 1. degenerative changes of the cervical spine as described above, 2. mild central canal stenosis at C5-C6, 3. moderate neural foraminal stenosis on the left at C5-C6 and right at C6-C7 Current Functional Impairments (Reported) Functional Limitations- Mobility/Gait sitting 1 hour (congregation) ice pack PT-OP-C Subjective Start: 10/11/24 18:52 Freq: Status: Active Protocol: Document 10/15/24 13:42 NM (Rec: 10/15/24 14:59 NM [id number]) OP-PT Subjective Patient Comments Patient Comments Pt consents to participate in PT evaluation Patient Questionnaires Neck Disability Index NDI Score 18/100 (18% impairment) Oswestry Low Back Index Oswestry Score 14/100 (14% impairment) OP-PT Pain Assessment Location cervical spine Pain Location Details scapula Intensity 1 Scale Used Numeric (0 - 10) Description Aching,Dull Description- Other 4 Frequency Intermittent Radiating Location down R posterolateral arm; usually elbow; prn to hand, thumb Pain Aggravating Factors Position,Activity,Exercise Other Pain Aggravating Factors driving Pain Alleviating Factors Cold,Lying Supine Other Pain Alleviating Factors activity PT-OP-E Functional Tests Start: 10/11/24 18:52 Freq: Status: Active Protocol: Document 10/15/24 13:42 NM (Rec: 10/15/24 14:59 NM [id number]) Functional Tests Apley's Scratch Test Action 1- Left post cuff Action 1- Right AC joint anteriorly Action 2- Left C7 Action 2- Right C7 Action 3- Left T7 Action 3- Right T10 PT-OP-F Manual Assessment Start: 10/11/24 18:52 Freq: Status: Active Protocol: Document 10/15/24 13:42 NM (Rec: 10/15/24 14:59 NM [id number]) Manual Assessments Soft Tissue Assessment Soft Tissue Mobility Assessment Tightness at cervical spine paraspinals, trapezius, levator scapula, rhomboids Joint Mobility Assessment Joint Mobility Assessment Medial border of scapula to spine: 9 cm R, 7 cm L Hypomobility of cervical spine with PA springing and lateral gliding Rib elevation Other Manual Assessments Other Manual Assessments Cranial nerves: intact 1, 2, 3 , 4, 5, 6, 7, 8, 10, 11, 12 PT-OP-H Neuro Start: 10/11/24 18:52 Freq: Status: Active Protocol: Document 10/15/24 13:42 NM (Rec: 10/15/24 14:59 NM [id number]) Sensation Evaluation Comments Summary Comments BUE equally intact to light touch sensation V1-V3 equally intact to light touch sensation PT-OP-J Posture/Palpation/Skin Start: 10/11/24 18:52 Freq: Status: Active Protocol: Document 10/15/24 13:42 NM (Rec: 10/15/24 15:15 NM [id number]) Posture Evaluation Position Standing Head/C-Spine Posture Forward Head Shoulder Posture (L) Rounded,(R) Rounded,(L) Forward,(R) Forward,(L) Elevated Scapula Posture (L) Neutral,(R) Protracted Pelvis Posture Anteriorly Tilted Knee Posture (L) Genu Valgus,(R) Genu Valgus Palpation Assessment Location cervical spine Palpation Details No tenderness with midline or transverse process palpation Tightness of cervical paraspinals, several trigger points distally R scapula Palpation Details Tightness and mild tenderness along periscapulars and rotator cuff, lat PT-OP-K Range of Motion Start: 10/11/24 18:52 Freq: Status: Active Protocol: Document 10/15/24 13:42 NM (Rec: 10/15/24 14:59 NM [id number]) Cervical Spine Range of Motion Cervical Spine Active Degrees Flexion 60 Extension 40 Rotation Left 75 Rotation Right 75 Lateral Flexion Left 40 Lateral Flexion Right 40 Comments (+): pain w/ flexion Thoracic spine: 100% all direction, lateral flexion with discomfort L Shoulder Goniometric Range of Motion Shoulder Right Flexion 145 Abduction 155 Left Flexion 170 Abduction 170 PT-OP-L Special Tests Start: 10/11/24 18:52 Freq: Status: Active Protocol: Document 10/15/24 13:42 NM (Rec: 10/15/24 14:59 NM [id number]) Special Tests Cervical Spine Special Tests Vertebral artery screen Test Results intact cranial and peripheral nerves, no symptoms with positional testing Transverse Ligament Test Results - Alar Ligament Test Results - Traction Test Results + Spurling's Test Test Results - Shoulder Special Tests Hornblowers Sign Test Results - Empty Can Test Results - Comments weakness with IR but no pain PT-OP-M Strength Start: 10/11/24 18:52 Freq: Status: Active Protocol: Document 10/15/24 13:42 NM (Rec: 10/15/24 14:59 NM [id number]) Cervical Spine Strength Cervical Spine Manual Muscle Testing Flexion (C1-2) 4 Good Extension 4 Good Rotation Left 4 Good Rotation Right 4 Good Lateral Flexion Left (C3) 4 Good Lateral Flexion Right (C3) 4 Good Scapula Strength Scapula Manual Muscle Testing Right Elevation (C4) 4- Good- Adduction 4 Good Abduction 4- Good- Depression 4- Good- Comments lower trapezius: 4-/5 Left Elevation (C4) 4+ Good+ Adduction 4 Good Abduction 4 Good Depression 4 Good Comments lower trapezius: 4-/5 Shoulder Strength Shoulder Manual Muscle Testing Right Flexion 4 Good Abduction (C5) 4 Good External Rotation 4+ Good+ Internal Rotation 4+ Good+ Left Flexion 4+ Good+ Abduction (C5) 4+ Good+ External Rotation 4+ Good+ Internal Rotation 4+ Good+ Elbow/Forearm Strength Elbow and Forearm Manual Muscle Testing Right Flexion (C6) 4+ Good+ Extension (C7) 4+ Good+ Left Flexion (C6) 4+ Good+ Extension (C7) 4+ Good+ PT-OP-Q Treatments Start: 10/11/24 18:52 Freq: Status: Active Protocol: Document 10/15/24 13:42 NM (Rec: 10/15/24 14:59 NM [id number]) Therapeutic Exercises Supine Exercises cervical retraction Side bilateral Equipment Used into pillow Reps/Minutes 10 x 2 hold Comments verbal and tactile cues; increased time needed Sidelying Exercises open book Side bilateral Reps/Minutes 10 ea Comments cueing for scapular facilitation Sitting Exercises cervical retraction Side bilateral Equipment Used verbal and tactile cues Reps/Minutes 10 Comments less coordinated than supine; for car posture Standing Exercises pectoralis stretch Standing Exercise Name 1. 90/90 stretch, 2. 120 deg Side bilateral Equipment Used stepping through at doorway Reps/Minutes 30 ea position Self-Care/Home Management Treatment Education Patient Education Joint Protection,Pain Management,Posture Other Education Education on sitting ergonomics during driving, working on [employer], and writing [employer]. Handout issued. Educated on use of pool noodle as postural re-education reminder during driving. Recommended use of head rest for neck support, possible need for additional support at cervical spine if head rest not satisfactory PT-OP-T Assessment and Plan Start: 10/11/24 18:52 Freq: Status: Active Protocol: Document 10/15/24 13:42 NM (Rec: 10/15/24 14:59 NM [id number]) Physical Therapy Assessment Rehab Potential Rehabilitation Potential Good Evaluation Complexity Number of Personal Factors/Comorbidities 1-2 Number of Body Systems Impaired 1-2 Clinical Presentation at Evaluation Stable Impairments Impairments Activity Tolerance,Balance, Functional Activities, Functional Mobility,Gait, Integument,Pain,Posture,ROM, Sensation,Soft Tissue Mobility ,Strength,Transfers,Vestibular Other Concerns Age Related Concerns PMH: arthritis; hx of R and L meniscus repairs Medications: vanlafaxine ( anxiety), meloxican (pain) Goals Three Impairment driving painful Short Term Goal (STG) Pt will be educated on sitting ergonomics in order to demonstrate improved symptom management STG Duration 3 weeks Half-Way Goal (LTG) Pt will report <2/10 pain with driving > 30 minutes in order to demonstrate improved symptom management LTG Duration 8 weeks Two Impairment NDI 18% impairment Refueling Ramp Supervisor Goal (LTG) Pt will reports <10% impairment on NDI in order to demonstrate improved symptom management, including sitting and standing tolerance LTG Duration 8 weeks One Impairment not performing HEP Half-Way Goal (LTG) Pt will be IND with HEP at least 3x/wk in order to maximize progression with PT and transition to maintenance upon discharge LTG Duration 8 weeks Assessment Summary Assessment Pt is a 64 y.o. presenting with R sided scapular pain beginning in July 2024 with ongoing episodes over several years. Pt's symptoms have been gradually improving; however, she continues to have impairments with sitting and standing tolerance, driving, ROM, strength, ADLs/activity tolerance, and pain management . Pt has mild limitations in cervical spine AROM and strength. She has significant limitations in R shoulder AROM and mild limitations in R shoulder strength compared to her L shoulder, which likely influence how well her cervicothoracic spine can move . Pt has limitations in thoracic and rib mobility, in addition to soft tissue restrictions that impair motion. No increase in symptoms with vertebral compression, only flexion; however, she does have symptom reduction with traction, indicating likely related discogenic cervical radiculopathy. No rotator cuff pathology indicated. PT educated pt on exam findings and plan of care. Pt would benefit from skilled PT for progressive flexibility and strengthening in addition to postural re-education and body mechanics training in order to improve symptom management and activity tolerance. Physical Therapy Plan Frequency and Duration Frequency of Treatment 1-2x/wk Duration of treatment (weeks) 8 Plan of Care Start Date 10/15/24 Plan of Care End Date 12/13/24 Therapeutic Interventions Therapeutic Interventions Balance Training,Canalithic Repositioning,Gait Training, Home Exercise Program,Joint Mobilizations,Manual Therapy, Neuromuscular Re-education, Orthotic/Prosthetic Management ,Patient/Caregiver Education, Self-Care/Home Management, Sensory Integration,Soft Tissue Mobilization,Taping, Therapeutic Activities, Therapeutic Exercises Modalities Cold Pack/Ice Massage,Electric Stimulation,Hot Packs, Traction- Mechanical, Ultrasound Next Visit Focus/Plan Next Note Type Treatment Note Next Visit Plan Finish VA screen foam roller, periscapulars STM and manual treatment to spine and ribs, scapular mobilization, R shoulder mobilization
--- NOTE | 2024-10-18 10:02 | PT.OTN ---
Current Diagnoses Stiffness of right shoulder, not elsewhere classified (10/18/24) Stiffness of other specified joint, not elsewhere classified (10/18/24) Spinal stenosis, site unspecified (10/18/24) Radiculopathy, cervical region (10/18/24) Pain in thoracic spine (10/18/24) Weakness (10/18/24) Physical Therapy Treatment Note PT-OP-A Visit Information Start: 10/11/24 18:52 Freq: Status: Active Protocol: Document 10/18/24 08:19 NM (Rec: 10/18/24 08:59 NM [id number]) Out-Patient Physical Therapy Visit Information Visit Information Visit Type Treatment Note Visit Note 6 approved visits (2 used w/ eval) Visit Start Time 08:20 Visit Stop Time 09:00 Visit Number 2 Evaluation Information Evaluation Date 10/15/24 Precautions Precautions Hx of cervical stenosis PT-OP-B Current Condition Start: 10/11/24 18:52 Freq: Status: Active Protocol: Document 10/15/24 13:42 NM (Rec: 10/15/24 14:59 NM [id number]) Current Condition History of Current Condition Onset Date chronic; ongoing; most recent 08/19/24 Current Complaints pain, stiffness, tightness History of Current Condition Pt presents with R sided radicular symptoms. 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 [place] like it was just tightening up. She had an MRI, showing a pinched nerve. She will be seeing a motorcycle racer in November. About 3 weeks ago , she reports, that she had more time between when her pain would improve. She reports that 1 week ago, she continued to have less pain. Participates in pilates and yoga. Has tenderness over R scapula. She reports that she fell 6 years ago on her arm and caught herself, reports that would intermittently flare up but would go away with ibuprofen. Pt reports that the main trigger is driving. Pt denies numbness/ tingling, only pain shooting down her arm. She had an adjustment from Dr. Kellogg to address her ribs, which was initially painful; saw a massage therapist, which was also not helpful. Reports improvement in reaching especially behind back. 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 Hx herniated disc L4-5 Prior Treatments and Tests MRI cervical spine August 2024- Impression: 1. degenerative changes of the cervical spine as described above, 2. mild central canal stenosis at C5-C6, 3. moderate neural foraminal stenosis on the left at C5-C6 and right at C6-C7 Current Functional Impairments (Reported) Functional Limitations- Mobility/Gait sitting 1 hour ([facility]) ice pack PT-OP-C Subjective Start: 10/11/24 18:52 Freq: Status: Active Protocol: Document 10/18/24 08:19 NM (Rec: 10/18/24 08:59 NM [id number]) OP-PT Subjective Patient Comments Patient Comments Pt reports that she is feeling the best she's felt in several months. She reports no meloxicam. She tried exercises, reports very hopeful that she is doing better. She reports a little sore after evaluation but reports resolved before 24 hours. She did a full gentle yoga class without discomfort, including downward dogs PT-OP-E Functional Tests Start: 10/11/24 18:52 Freq: Status: Active Protocol: Document 10/15/24 13:42 NM (Rec: 10/15/24 14:59 NM [id number]) Functional Tests Apley's Scratch Test Action 1- Left post cuff Action 1- Right AC joint anteriorly Action 2- Left C7 Action 2- Right C7 Action 3- Left T7 Action 3- Right T10 PT-OP-F Manual Assessment Start: 10/11/24 18:52 Freq: Status: Active Protocol: Document 10/15/24 13:42 NM (Rec: 10/15/24 14:59 NM [id number]) Manual Assessments Soft Tissue Assessment Soft Tissue Mobility Assessment Tightness at cervical spine paraspinals, trapezius, levator scapula, rhomboids Joint Mobility Assessment Joint Mobility Assessment Medial border of scapula to spine: 9 cm R, 7 cm L Hypomobility of cervical spine with PA springing and lateral gliding Rib elevation Other Manual Assessments Other Manual Assessments Cranial nerves: intact 1, 2, 3 , 4, 5, 6, 7, 8, 10, 11, 12 PT-OP-H Neuro Start: 10/11/24 18:52 Freq: Status: Active Protocol: Document 10/15/24 13:42 NM (Rec: 10/15/24 14:59 NM [id number]) Sensation Evaluation Comments Summary Comments BUE equally intact to light touch sensation V1-V3 equally intact to light touch sensation PT-OP-J Posture/Palpation/Skin Start: 10/11/24 18:52 Freq: Status: Active Protocol: Document 10/15/24 13:42 NM (Rec: 10/15/24 15:15 NM [id number]) Posture Evaluation Position Standing Head/C-Spine Posture Forward Head Shoulder Posture (L) Rounded,(R) Rounded,(L) Forward,(R) Forward,(L) Elevated Scapula Posture (L) Neutral,(R) Protracted Pelvis Posture Anteriorly Tilted Knee Posture (L) Genu Valgus,(R) Genu Valgus Palpation Assessment Location cervical spine Palpation Details No tenderness with midline or transverse process palpation Tightness of cervical paraspinals, several trigger points distally R scapula Palpation Details Tightness and mild tenderness along periscapulars and rotator cuff, lat PT-OP-K Range of Motion Start: 10/11/24 18:52 Freq: Status: Active Protocol: Document 10/15/24 13:42 NM (Rec: 10/15/24 14:59 NM [id number]) Cervical Spine Range of Motion Cervical Spine Active Degrees Flexion 60 Extension 40 Rotation Left 75 Rotation Right 75 Lateral Flexion Left 40 Lateral Flexion Right 40 Comments (+): pain w/ flexion Thoracic spine: 100% all direction, lateral flexion with discomfort L Shoulder Goniometric Range of Motion Shoulder Right Flexion 145 Abduction 155 Left Flexion 170 Abduction 170 PT-OP-L Special Tests Start: 10/11/24 18:52 Freq: Status: Active Protocol: Document 10/18/24 08:19 NM (Rec: 10/18/24 09:00 NM [id number]) Special Tests Cervical Spine Special Tests Vertebral artery screen Test Results intact cranial and peripheral nerves, no symptoms with positional testing Comments cardiac and carotid ausculatation/palpation WFL, BP 121/78 Transverse Ligament Test Results - Alar Ligament Test Results - Traction Test Results + Spurling's Test Test Results - PT-OP-M Strength Start: 10/11/24 18:52 Freq: Status: Active Protocol: Document 10/15/24 13:42 NM (Rec: 10/15/24 14:59 NM [id number]) Cervical Spine Strength Cervical Spine Manual Muscle Testing Flexion (C1-2) 4 Good Extension 4 Good Rotation Left 4 Good Rotation Right 4 Good Lateral Flexion Left (C3) 4 Good Lateral Flexion Right (C3) 4 Good Scapula Strength Scapula Manual Muscle Testing Right Elevation (C4) 4- Good- Adduction 4 Good Abduction 4- Good- Depression 4- Good- Comments lower trapezius: 4-/5 Left Elevation (C4) 4+ Good+ Adduction 4 Good Abduction 4 Good Depression 4 Good Comments lower trapezius: 4-/5 Shoulder Strength Shoulder Manual Muscle Testing Right Flexion 4 Good Abduction (C5) 4 Good External Rotation 4+ Good+ Internal Rotation 4+ Good+ Left Flexion 4+ Good+ Abduction (C5) 4+ Good+ External Rotation 4+ Good+ Internal Rotation 4+ Good+ Elbow/Forearm Strength Elbow and Forearm Manual Muscle Testing Right Flexion (C6) 4+ Good+ Extension (C7) 4+ Good+ Left Flexion (C6) 4+ Good+ Extension (C7) 4+ Good+ PT-OP-Q Treatments Start: 10/11/24 18:52 Freq: Status: Active Protocol: Document 10/18/24 08:19 NM (Rec: 10/18/24 08:59 NM [id number]) Therapeutic Exercises Supine Exercises foam roller Supine Exercise Name 1. TS ext, 2. ext w/ band, 3. pec stretch (90,120), 4. HABD w/ band, 5. PNF Side bilateral Resistance level 1 band Equipment Used all HEP Reps/Minutes 1. 10 multijoint, 2. 10, 3. 60 ea position, 4.2x10, 5. 2x10 Comments pain free Sidelying Exercises open book Sidelying Exercise Name HEP review Side bilateral Reps/Minutes 15 ea Comments improved ROM today Manual Therapy Treatment Consent Patient gave verbal consent for manual Yes treatment Soft Tissue Mobilization cervical spine Body Location LS, traps, paraspinals, pecs, rhomboids Mobilization Type Rolling,Strumming,Sustained Pressure Intensity/Depth Moderate Body Position Sidelying Comments Trigger point and tightness at LS and traps, reduced with mobilization. No tenderness Joint Mobilizations scapular Joint adduction/retraction Grade III Body Position Sidelying Reps/Duration 2x30 ea Comments R side only. Monitored for pain, good feedback for stretching with depression PT-OP-T Assessment and Plan Start: 10/11/24 18:52 Freq: Status: Active Protocol: Document 10/18/24 08:19 NM (Rec: 10/18/24 08:59 NM [id number]) Physical Therapy Assessment Goals Three Impairment driving painful Short Term Goal (STG) Pt will be educated on sitting ergonomics in order to demonstrate improved symptom management STG Duration 3 weeks Penitentiary Goal (LTG) Pt will report <2/10 pain with driving > 30 minutes in order to demonstrate improved symptom management LTG Duration 8 weeks Two Impairment NDI 18% impairment Penitentiary Goal (LTG) Pt will reports <10% impairment on NDI in order to demonstrate improved symptom management, including sitting and standing tolerance LTG Duration 8 weeks One Impairment not performing HEP Assistant Food Service Director Goal (LTG) Pt will be IND with HEP at least 3x/wk in order to maximize progression with PT and transition to maintenance upon discharge LTG Duration 8 weeks Assessment Summary Assessment Pt has no pain during session. Trialed manual therapy to reduce soft tissue limitations and to improve flexibility. Mild limitations in scapular mobility, especially with depression; good feedback for lengthening of posterior chain . Initiated periscapular strengthening and thoracic mobility on foam roller. Able to progress to band use. Minimal cueing needed for execution except for form and for scapular facilitation. Physical Therapy Plan Frequency and Duration Frequency of Treatment 1-2x/wk Duration of treatment (weeks) 8 Plan of Care Start Date 10/15/24 Plan of Care End Date 12/13/24 Therapeutic Interventions Therapeutic Interventions Balance Training,Canalithic Repositioning,Gait Training, Home Exercise Program,Joint Mobilizations,Manual Therapy, Neuromuscular Re-education, Orthotic/Prosthetic Management ,Patient/Caregiver Education, Self-Care/Home Management, Sensory Integration,Soft Tissue Mobilization,Taping, Therapeutic Activities, Therapeutic Exercises Modalities Cold Pack/Ice Massage,Electric Stimulation,Hot Packs, Traction- Mechanical, Ultrasound Next Visit Focus/Plan Next Note Type Treatment Note Next Visit Plan periscapulars at wall vs ball and with band STM and manual treatment to spine and ribs, scapular mobilization, R shoulder mobilization
--- NOTE | 2024-10-29 09:59 | PT.OTN ---
Current Diagnoses Stiffness of right shoulder, not elsewhere classified (10/29/24) Stiffness of other specified joint, not elsewhere classified (10/29/24) Spinal stenosis, site unspecified (10/29/24) Radiculopathy, cervical region (10/29/24) Pain in thoracic spine (10/29/24) Weakness (10/29/24) Physical Therapy Treatment Note PT-OP-A Visit Information Start: 10/11/24 18:52 Freq: Status: Active Protocol: Document 10/29/24 08:16 NM (Rec: 10/29/24 09:02 NM [id number]) Out-Patient Physical Therapy Visit Information Visit Information Visit Type Treatment Note Visit Note 6 approved visits (2 used w/ eval) Visit Start Time 08:17 Visit Stop Time 09:01 Visit Number 3 Evaluation Information Evaluation Date 10/15/24 Precautions Precautions Hx of cervical stenosis PT-OP-B Current Condition Start: 10/11/24 18:52 Freq: Status: Active Protocol: Document 10/15/24 13:42 NM (Rec: 10/15/24 14:59 NM [id number]) Current Condition History of Current Condition Onset Date chronic; ongoing; most recent 08/19/24 Current Complaints pain, stiffness, tightness History of Current Condition Pt presents with R sided radicular symptoms. 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 [place] like it was just tightening up. She had an MRI, showing a pinched nerve. She will be seeing a color drum worker in November. About 3 weeks ago , she reports, that she had more time between when her pain would improve. She reports that 1 week ago, she continued to have less pain. Participates in pilates and yoga. Has tenderness over R scapula. She reports that she fell 6 years ago on her arm and caught herself, reports that would intermittently flare up but would go away with ibuprofen. Pt reports that the main trigger is driving. Pt denies numbness/ tingling, only pain shooting down her arm. She had an adjustment from Dr. Kellogg to address her ribs, which was initially painful; saw a massage therapist, which was also not helpful. Reports improvement in reaching especially behind back. 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 Hx herniated disc L4-5 Prior Treatments and Tests MRI cervical spine August 2024- Impression: 1. degenerative changes of the cervical spine as described above, 2. mild central canal stenosis at C5-C6, 3. moderate neural foraminal stenosis on the left at C5-C6 and right at C6-C7 Current Functional Impairments (Reported) Functional Limitations- Mobility/Gait sitting 1 hour ([facility]) ice pack PT-OP-C Subjective Start: 10/11/24 18:52 Freq: Status: Active Protocol: Document 10/29/24 08:16 NM (Rec: 10/29/24 09:02 NM [id number]) OP-PT Subjective Patient Comments Patient Comments Pt reports sore after last session. States that she feels like bands irritate her elbow . She reports that she still feels really tight on her shoulder blade and her neck. She was very sick for 5 days. PT-OP-E Functional Tests Start: 10/11/24 18:52 Freq: Status: Active Protocol: Document 10/15/24 13:42 NM (Rec: 10/15/24 14:59 NM [id number]) Functional Tests Apley's Scratch Test Action 1- Left post cuff Action 1- Right AC joint anteriorly Action 2- Left C7 Action 2- Right C7 Action 3- Left T7 Action 3- Right T10 PT-OP-F Manual Assessment Start: 10/11/24 18:52 Freq: Status: Active Protocol: Document 10/15/24 13:42 NM (Rec: 10/15/24 14:59 NM [id number]) Manual Assessments Soft Tissue Assessment Soft Tissue Mobility Assessment Tightness at cervical spine paraspinals, trapezius, levator scapula, rhomboids Joint Mobility Assessment Joint Mobility Assessment Medial border of scapula to spine: 9 cm R, 7 cm L Hypomobility of cervical spine with PA springing and lateral gliding Rib elevation Other Manual Assessments Other Manual Assessments Cranial nerves: intact 1, 2, 3 , 4, 5, 6, 7, 8, 10, 11, 12 PT-OP-H Neuro Start: 10/11/24 18:52 Freq: Status: Active Protocol: Document 10/15/24 13:42 NM (Rec: 10/15/24 14:59 NM [id number]) Sensation Evaluation Comments Summary Comments BUE equally intact to light touch sensation V1-V3 equally intact to light touch sensation PT-OP-J Posture/Palpation/Skin Start: 10/11/24 18:52 Freq: Status: Active Protocol: Document 10/15/24 13:42 NM (Rec: 10/15/24 15:15 NM [id number]) Posture Evaluation Position Standing Head/C-Spine Posture Forward Head Shoulder Posture (L) Rounded,(R) Rounded,(L) Forward,(R) Forward,(L) Elevated Scapula Posture (L) Neutral,(R) Protracted Pelvis Posture Anteriorly Tilted Knee Posture (L) Genu Valgus,(R) Genu Valgus Palpation Assessment Location cervical spine Palpation Details No tenderness with midline or transverse process palpation Tightness of cervical paraspinals, several trigger points distally R scapula Palpation Details Tightness and mild tenderness along periscapulars and rotator cuff, lat PT-OP-K Range of Motion Start: 10/11/24 18:52 Freq: Status: Active Protocol: Document 10/15/24 13:42 NM (Rec: 10/15/24 14:59 NM [id number]) Cervical Spine Range of Motion Cervical Spine Active Degrees Flexion 60 Extension 40 Rotation Left 75 Rotation Right 75 Lateral Flexion Left 40 Lateral Flexion Right 40 Comments (+): pain w/ flexion Thoracic spine: 100% all direction, lateral flexion with discomfort L Shoulder Goniometric Range of Motion Shoulder Right Flexion 145 Abduction 155 Left Flexion 170 Abduction 170 PT-OP-L Special Tests Start: 10/11/24 18:52 Freq: Status: Active Protocol: Document 10/18/24 08:19 NM (Rec: 10/18/24 09:00 NM [id number]) Special Tests Cervical Spine Special Tests Vertebral artery screen Test Results intact cranial and peripheral nerves, no symptoms with positional testing Comments cardiac and carotid ausculatation/palpation WFL, BP 121/78 Transverse Ligament Test Results - Alar Ligament Test Results - Traction Test Results + Spurling's Test Test Results - PT-OP-M Strength Start: 10/11/24 18:52 Freq: Status: Active Protocol: Document 10/15/24 13:42 NM (Rec: 10/15/24 14:59 NM [id number]) Cervical Spine Strength Cervical Spine Manual Muscle Testing Flexion (C1-2) 4 Good Extension 4 Good Rotation Left 4 Good Rotation Right 4 Good Lateral Flexion Left (C3) 4 Good Lateral Flexion Right (C3) 4 Good Scapula Strength Scapula Manual Muscle Testing Right Elevation (C4) 4- Good- Adduction 4 Good Abduction 4- Good- Depression 4- Good- Comments lower trapezius: 4-/5 Left Elevation (C4) 4+ Good+ Adduction 4 Good Abduction 4 Good Depression 4 Good Comments lower trapezius: 4-/5 Shoulder Strength Shoulder Manual Muscle Testing Right Flexion 4 Good Abduction (C5) 4 Good External Rotation 4+ Good+ Internal Rotation 4+ Good+ Left Flexion 4+ Good+ Abduction (C5) 4+ Good+ External Rotation 4+ Good+ Internal Rotation 4+ Good+ Elbow/Forearm Strength Elbow and Forearm Manual Muscle Testing Right Flexion (C6) 4+ Good+ Extension (C7) 4+ Good+ Left Flexion (C6) 4+ Good+ Extension (C7) 4+ Good+ PT-OP-Q Treatments Start: 10/11/24 18:52 Freq: Status: Active Protocol: Document 10/29/24 08:16 NM (Rec: 10/29/24 09:02 NM [id number]) Therapeutic Exercises Supine Exercises cervical rotation Side right Reps/Minutes 5 Comments following manual tx Sidelying Exercises scapular clock Sidelying Exercise Name elev/dep, retract/protract Side right Reps/Minutes 8 ea shoulder trio Sidelying Exercise Name flex HEP, abd HEP, no ER d/t elbow pain Side right Equipment Used PT facilitation at scapula Reps/Minutes 10 ea Comments cued to limit trap elevation to reduce neck tightness; pain free open book Sidelying Exercise Name HEP review Side bilateral Reps/Minutes 10 Comments improved ROM today Standing Exercises wall posture Standing Exercise Name 1. posture, 2. B ER w/ retract , 3. Y lift offs HEP Side bilateral Equipment Used towel roll behind head Reps/Minutes 1. 2 min, 2. 10, 3. 10 Comments fabián well. cues posture Other Exercises self soft tissue mobilization Other Exercise Name UT, LS, rhomboids, pec Side right Equipment Used tennis ball in pillow case Reps/Minutes 2 min Comments MWM with flex/HABD Manual Therapy Treatment Soft Tissue Mobilization cervical spine Body Location LS, traps, CS paraspinals, pecs, rhomboids, post cuff Mobilization Type Rolling,Strumming,Sustained Pressure Intensity/Depth Moderate Body Position Sidelying Comments Trigger points a rhomboids, LS , traps. Reduced extensively with mobilization w/ movement of UT/LS in sidelying and soft tissue mobilization Joint Mobilizations scapular Joint adduction/retraction Grade III Body Position Sidelying Reps/Duration 2x30 ea Comments R side only. Monitored for pain, good feedback for stretching with depression Self-Care/Home Management Treatment Education Patient Education Body Mechanics,Joint Protection,Posture Other Education 10 min- Education using spinal /anatomy models on muscles, nerves, nerve roots/ innervations and how relates to symptoms and management PT-OP-T Assessment and Plan Start: 10/11/24 18:52 Freq: Status: Active Protocol: Document 10/29/24 08:16 NM (Rec: 10/29/24 09:02 NM [id number]) Physical Therapy Assessment Goals Three Impairment driving painful Short Term Goal (STG) Pt will be educated on sitting ergonomics in order to demonstrate improved symptom management STG Duration 3 weeks Skilled Nursing Goal (LTG) Pt will report <2/10 pain with driving > 30 minutes in order to demonstrate improved symptom management LTG Duration 8 weeks Two Impairment NDI 18% impairment Skilled Nursing Goal (LTG) Pt will reports <10% impairment on NDI in order to demonstrate improved symptom management, including sitting and standing tolerance LTG Duration 8 weeks One Impairment not performing HEP Skilled Nursing Goal (LTG) Pt will be IND with HEP at least 3x/wk in order to maximize progression with PT and transition to maintenance upon discharge LTG Duration 8 weeks Assessment Summary Assessment Pt reports and demonstrates observable improvement in cervical rotation AROM to R side (did not measure due to time). Continues to have several trigger points that re -occur with exercise outside of session; improved with manual treatment. Good feedback for mobilization with movement to traps and periscapulars. Initiated sidelying shoulder AROM to improve scapular facilitation and to decreased compensations for improved efficiency with overhead reaching during ADLs, in addition to maintaining appropriate muscle length at cervical spine. Good tolerance for wall posture, cueing needed for postural control. Extensive time spent at start of session on education using anatomy models regarding muscle and nerve innervation, relation to disc/nerve root involvement and how affect symptoms. Pt demos improved understanding at end of session. Physical Therapy Plan Frequency and Duration Frequency of Treatment 1-2x/wk Duration of treatment (weeks) 8 Plan of Care Start Date 10/15/24 Plan of Care End Date 12/13/24 Therapeutic Interventions Therapeutic Interventions Balance Training,Canalithic Repositioning,Gait Training, Home Exercise Program,Joint Mobilizations,Manual Therapy, Neuromuscular Re-education, Orthotic/Prosthetic Management ,Patient/Caregiver Education, Self-Care/Home Management, Sensory Integration,Soft Tissue Mobilization,Taping, Therapeutic Activities, Therapeutic Exercises Modalities Cold Pack/Ice Massage,Electric Stimulation,Hot Packs, Traction- Mechanical, Ultrasound Next Visit Focus/Plan Next Note Type Treatment Note Next Visit Plan Rows/low rows, wall plank vs push up etc, CS demarcus vs isot for muscle length, periscapulars at wall vs ball (Y<>W lift offs) STM and manual treatment to spine and ribs, scapular mobilization, R shoulder mobilization
--- NOTE | 2024-11-06 15:12 | PT.OTN ---
Current Diagnoses Stiffness of right shoulder, not elsewhere classified (11/06/24) Stiffness of other specified joint, not elsewhere classified (11/06/24) Spinal stenosis, site unspecified (11/06/24) Radiculopathy, cervical region (11/06/24) Pain in thoracic spine (11/06/24) Weakness (11/06/24) Physical Therapy Treatment Note PT-OP-A Visit Information Start: 10/11/24 18:52 Freq: Status: Active Protocol: Document 11/06/24 14:35 MB (Rec: 11/06/24 15:12 MB [id number]) Out-Patient Physical Therapy Visit Information Visit Information Visit Type Treatment Note Visit Note 6 approved visits (2 used w/ eval) PT communicates with [employer] to consider more auth for pt after [employer] contacts this PT and PT speask with pt. Visit Start Time 14:35 Visit Stop Time 15:03 Visit Number 4 Evaluation Information Evaluation Date 10/15/24 Precautions Precautions Hx of cervical stenosis PT-OP-B Current Condition Start: 10/11/24 18:52 Freq: Status: Active Protocol: Document 10/15/24 13:42 NM (Rec: 10/15/24 14:59 NM [id number]) Current Condition History of Current Condition Onset Date chronic; ongoing; most recent 08/19/24 Current Complaints pain, stiffness, tightness History of Current Condition Pt presents with R sided radicular symptoms. 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 [place] like it was just tightening up. She had an MRI, showing a pinched nerve. She will be seeing a centrifugal casting machine tender in November. About 3 weeks ago , she reports, that she had more time between when her pain would improve. She reports that 1 week ago, she continued to have less pain. Participates in pilates and yoga. Has tenderness over R scapula. She reports that she fell 6 years ago on her arm and caught herself, reports that would intermittently flare up but would go away with ibuprofen. Pt reports that the main trigger is driving. Pt denies numbness/ tingling, only pain shooting down her arm. She had an adjustment from Dr. Kellogg to address her ribs, which was initially painful; saw a massage therapist, which was also not helpful. Reports improvement in reaching especially behind back. 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 Hx herniated disc L4-5 Prior Treatments and Tests MRI cervical spine August 2024- Impression: 1. degenerative changes of the cervical spine as described above, 2. mild central canal stenosis at C5-C6, 3. moderate neural foraminal stenosis on the left at C5-C6 and right at C6-C7 Current Functional Impairments (Reported) Functional Limitations- Mobility/Gait sitting 1 hour ([facility]) ice pack PT-OP-C Subjective Start: 10/11/24 18:52 Freq: Status: Active Protocol: Document 11/06/24 14:35 MB (Rec: 11/06/24 15:12 MB [id number]) OP-PT Subjective Patient Comments Patient Comments Pt has tight muscles at neck and she tends to carry her stress there. She has some tension under scapula as well. PT-OP-E Functional Tests Start: 10/11/24 18:52 Freq: Status: Active Protocol: Document 10/15/24 13:42 NM (Rec: 10/15/24 14:59 NM [id number]) Functional Tests Apley's Scratch Test Action 1- Left post cuff Action 1- Right AC joint anteriorly Action 2- Left C7 Action 2- Right C7 Action 3- Left T7 Action 3- Right T10 PT-OP-F Manual Assessment Start: 10/11/24 18:52 Freq: Status: Active Protocol: Document 10/15/24 13:42 NM (Rec: 10/15/24 14:59 NM [id number]) Manual Assessments Soft Tissue Assessment Soft Tissue Mobility Assessment Tightness at cervical spine paraspinals, trapezius, levator scapula, rhomboids Joint Mobility Assessment Joint Mobility Assessment Medial border of scapula to spine: 9 cm R, 7 cm L Hypomobility of cervical spine with PA springing and lateral gliding Rib elevation Other Manual Assessments Other Manual Assessments Cranial nerves: intact 1, 2, 3 , 4, 5, 6, 7, 8, 10, 11, 12 PT-OP-H Neuro Start: 10/11/24 18:52 Freq: Status: Active Protocol: Document 10/15/24 13:42 NM (Rec: 10/15/24 14:59 NM [id number]) Sensation Evaluation Comments Summary Comments BUE equally intact to light touch sensation V1-V3 equally intact to light touch sensation PT-OP-J Posture/Palpation/Skin Start: 10/11/24 18:52 Freq: Status: Active Protocol: Document 10/15/24 13:42 NM (Rec: 10/15/24 15:15 NM [id number]) Posture Evaluation Position Standing Head/C-Spine Posture Forward Head Shoulder Posture (L) Rounded,(R) Rounded,(L) Forward,(R) Forward,(L) Elevated Scapula Posture (L) Neutral,(R) Protracted Pelvis Posture Anteriorly Tilted Knee Posture (L) Genu Valgus,(R) Genu Valgus Palpation Assessment Location cervical spine Palpation Details No tenderness with midline or transverse process palpation Tightness of cervical paraspinals, several trigger points distally R scapula Palpation Details Tightness and mild tenderness along periscapulars and rotator cuff, lat PT-OP-K Range of Motion Start: 10/11/24 18:52 Freq: Status: Active Protocol: Document 10/15/24 13:42 NM (Rec: 10/15/24 14:59 NM [id number]) Cervical Spine Range of Motion Cervical Spine Active Degrees Flexion 60 Extension 40 Rotation Left 75 Rotation Right 75 Lateral Flexion Left 40 Lateral Flexion Right 40 Comments (+): pain w/ flexion Thoracic spine: 100% all direction, lateral flexion with discomfort L Shoulder Goniometric Range of Motion Shoulder Right Flexion 145 Abduction 155 Left Flexion 170 Abduction 170 PT-OP-L Special Tests Start: 10/11/24 18:52 Freq: Status: Active Protocol: Document 10/18/24 08:19 NM (Rec: 10/18/24 09:00 NM [id number]) Special Tests Cervical Spine Special Tests Vertebral artery screen Test Results intact cranial and peripheral nerves, no symptoms with positional testing Comments cardiac and carotid ausculatation/palpation WFL, BP 121/78 Transverse Ligament Test Results - Alar Ligament Test Results - Traction Test Results + Spurling's Test Test Results - PT-OP-M Strength Start: 10/11/24 18:52 Freq: Status: Active Protocol: Document 10/15/24 13:42 NM (Rec: 10/15/24 14:59 NM [id number]) Cervical Spine Strength Cervical Spine Manual Muscle Testing Flexion (C1-2) 4 Good Extension 4 Good Rotation Left 4 Good Rotation Right 4 Good Lateral Flexion Left (C3) 4 Good Lateral Flexion Right (C3) 4 Good Scapula Strength Scapula Manual Muscle Testing Right Elevation (C4) 4- Good- Adduction 4 Good Abduction 4- Good- Depression 4- Good- Comments lower trapezius: 4-/5 Left Elevation (C4) 4+ Good+ Adduction 4 Good Abduction 4 Good Depression 4 Good Comments lower trapezius: 4-/5 Shoulder Strength Shoulder Manual Muscle Testing Right Flexion 4 Good Abduction (C5) 4 Good External Rotation 4+ Good+ Internal Rotation 4+ Good+ Left Flexion 4+ Good+ Abduction (C5) 4+ Good+ External Rotation 4+ Good+ Internal Rotation 4+ Good+ Elbow/Forearm Strength Elbow and Forearm Manual Muscle Testing Right Flexion (C6) 4+ Good+ Extension (C7) 4+ Good+ Left Flexion (C6) 4+ Good+ Extension (C7) 4+ Good+ PT-OP-Q Treatments Start: 10/11/24 18:52 Freq: Status: Active Protocol: Document 11/06/24 14:35 MB (Rec: 11/06/24 15:12 MB [id number]) Manual Therapy Treatment Consent Patient gave verbal consent for manual Yes treatment Other Other Manual Treatments Pt prone: rib recoil to improve thoracic and rib mobility, STM and positional release many muscles and TrP right infraspinatus, upper traps and subscapularis and pt tolerates well PT-OP-T Assessment and Plan Start: 10/11/24 18:52 Freq: Status: Active Protocol: Document 11/06/24 14:35 MB (Rec: 11/06/24 15:12 MB [id number]) Physical Therapy Assessment Goals Three Impairment driving painful Short Term Goal (STG) Pt will be educated on sitting ergonomics in order to demonstrate improved symptom management STG Duration 3 weeks Group Home Goal (LTG) Pt will report <2/10 pain with driving > 30 minutes in order to demonstrate improved symptom management LTG Duration 8 weeks Two Impairment NDI 18% impairment [employer] Goal (LTG) Pt will reports <10% impairment on NDI in order to demonstrate improved symptom management, including sitting and standing tolerance LTG Duration 8 weeks One Impairment not performing HEP [employer] Goal (LTG) Pt will be IND with HEP at least 3x/wk in order to maximize progression with PT and transition to maintenance upon discharge LTG Duration 8 weeks Assessment Summary Assessment Pt tolerates manual work well today. See plan below for future visits. Physical Therapy Plan Frequency and Duration Frequency of Treatment 1-2x/wk Duration of treatment (weeks) 8 Plan of Care Start Date 10/15/24 Plan of Care End Date 12/13/24 Therapeutic Interventions Therapeutic Interventions Balance Training,Canalithic Repositioning,Gait Training, Home Exercise Program,Joint Mobilizations,Manual Therapy, Neuromuscular Re-education, Orthotic/Prosthetic Management ,Patient/Caregiver Education, Self-Care/Home Management, Sensory Integration,Soft Tissue Mobilization,Taping, Therapeutic Activities, Therapeutic Exercises Modalities Cold Pack/Ice Massage,Electric Stimulation,Hot Packs, Traction- Mechanical, Ultrasound Next Visit Focus/Plan Next Note Type Treatment Note Next Visit Plan Discuss treatment plan and check to see if need progress note. Similar: Rows/low rows, wall plank vs push up etc, CS demarcus vs isot for muscle length, periscapulars at wall vs ball (Y<>W lift offs) STM and manual treatment to spine and ribs, scapular mobilization, R shoulder mobilization
--- NOTE | 2024-11-13 15:45 | PT.OTN ---
Current Diagnoses Stiffness of right shoulder, not elsewhere classified (11/13/24) Stiffness of other specified joint, not elsewhere classified (11/13/24) Spinal stenosis, site unspecified (11/13/24) Radiculopathy, cervical region (11/13/24) Pain in thoracic spine (11/13/24) Weakness (11/13/24) Physical Therapy Treatment Note PT-OP-A Visit Information Start: 10/11/24 18:52 Freq: Status: Active Protocol: Document 11/13/24 07:29 NM (Rec: 11/13/24 09:50 NM [id number]) Out-Patient Physical Therapy Visit Information Visit Information Visit Type Progress Note Visit Start Time 07:32 Visit Stop Time 08:15 Visit Number 5 Evaluation Information Evaluation Date 10/15/24 Precautions Precautions Hx of cervical stenosis PT-OP-B Current Condition Start: 10/11/24 18:52 Freq: Status: Active Protocol: Document 10/15/24 13:42 NM (Rec: 10/15/24 14:59 NM [id number]) Current Condition History of Current Condition Onset Date chronic; ongoing; most recent 08/19/24 Current Complaints pain, stiffness, tightness History of Current Condition Pt presents with R sided radicular symptoms. 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 [place] like it was just tightening up. She had an MRI, showing a pinched nerve. She will be seeing a thermoplastic technician in November. About 3 weeks ago , she reports, that she had more time between when her pain would improve. She reports that 1 week ago, she continued to have less pain. Participates in pilates and yoga. Has tenderness over R scapula. She reports that she fell 6 years ago on her arm and caught herself, reports that would intermittently flare up but would go away with ibuprofen. Pt reports that the main trigger is driving. Pt denies numbness/ tingling, only pain shooting down her arm. She had an adjustment from Dr. Kellogg to address her ribs, which was initially painful; saw a massage therapist, which was also not helpful. Reports improvement in reaching especially behind back. 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 Hx herniated disc L4-5 Prior Treatments and Tests MRI cervical spine August 2024- Impression: 1. degenerative changes of the cervical spine as described above, 2. mild central canal stenosis at C5-C6, 3. moderate neural foraminal stenosis on the left at C5-C6 and right at C6-C7 Current Functional Impairments (Reported) Functional Limitations- Mobility/Gait sitting 1 hour ([facility]) ice pack PT-OP-C Subjective Start: 10/11/24 18:52 Freq: Status: Active Protocol: Document 11/13/24 07:29 NM (Rec: 11/13/24 09:50 NM [id number]) OP-PT Subjective Patient Comments Patient Comments Pt reports that she felt good following her last session. She had a sharp pain over the weekend in the spot near her shoulder blade, had to lie down; states very sore for the next several days. 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 She reports that feels back to normal, now tight but improved. Otherwise, feels like progressing with driving. PT-OP-E Functional Tests Start: 10/11/24 18:52 Freq: Status: Active Protocol: Document 10/15/24 13:42 NM (Rec: 10/15/24 14:59 NM [id number]) Functional Tests Apley's Scratch Test Action 1- Left post cuff Action 1- Right AC joint anteriorly Action 2- Left C7 Action 2- Right C7 Action 3- Left T7 Action 3- Right T10 PT-OP-F Manual Assessment Start: 10/11/24 18:52 Freq: Status: Active Protocol: Document 10/15/24 13:42 NM (Rec: 10/15/24 14:59 NM [id number]) Manual Assessments Soft Tissue Assessment Soft Tissue Mobility Assessment Tightness at cervical spine paraspinals, trapezius, levator scapula, rhomboids Joint Mobility Assessment Joint Mobility Assessment Medial border of scapula to spine: 9 cm R, 7 cm L Hypomobility of cervical spine with PA springing and lateral gliding Rib elevation Other Manual Assessments Other Manual Assessments Cranial nerves: intact 1, 2, 3 , 4, 5, 6, 7, 8, 10, 11, 12 PT-OP-H Neuro Start: 10/11/24 18:52 Freq: Status: Active Protocol: Document 10/15/24 13:42 NM (Rec: 10/15/24 14:59 NM [id number]) Sensation Evaluation Comments Summary Comments BUE equally intact to light touch sensation V1-V3 equally intact to light touch sensation PT-OP-J Posture/Palpation/Skin Start: 10/11/24 18:52 Freq: Status: Active Protocol: Document 10/15/24 13:42 NM (Rec: 10/15/24 15:15 NM [id number]) Posture Evaluation Position Standing Head/C-Spine Posture Forward Head Shoulder Posture (L) Rounded,(R) Rounded,(L) Forward,(R) Forward,(L) Elevated Scapula Posture (L) Neutral,(R) Protracted Pelvis Posture Anteriorly Tilted Knee Posture (L) Genu Valgus,(R) Genu Valgus Palpation Assessment Location cervical spine Palpation Details No tenderness with midline or transverse process palpation Tightness of cervical paraspinals, several trigger points distally R scapula Palpation Details Tightness and mild tenderness along periscapulars and rotator cuff, lat PT-OP-K Range of Motion Start: 10/11/24 18:52 Freq: Status: Active Protocol: Document 11/13/24 07:29 NM (Rec: 11/13/24 09:50 NM [id number]) Cervical Spine Range of Motion Cervical Spine Active Degrees Flexion 60 Extension 40 Rotation Left 75 Rotation Right 75 Lateral Flexion Left 40 Lateral Flexion Right 40 Comments (+): pain w/ flexion Thoracic spine: 100% all direction, lateral flexion with discomfort L 11/13/24: 65 deg R and L rot; no change other ROM PT-OP-L Special Tests Start: 10/11/24 18:52 Freq: Status: Active Protocol: Document 10/18/24 08:19 NM (Rec: 10/18/24 09:00 NM [id number]) Special Tests Cervical Spine Special Tests Vertebral artery screen Test Results intact cranial and peripheral nerves, no symptoms with positional testing Comments cardiac and carotid ausculatation/palpation WFL, BP 121/78 Transverse Ligament Test Results - Alar Ligament Test Results - Traction Test Results + Spurling's Test Test Results - PT-OP-M Strength Start: 10/11/24 18:52 Freq: Status: Active Protocol: Document 10/15/24 13:42 NM (Rec: 10/15/24 14:59 NM [id number]) Cervical Spine Strength Cervical Spine Manual Muscle Testing Flexion (C1-2) 4 Good Extension 4 Good Rotation Left 4 Good Rotation Right 4 Good Lateral Flexion Left (C3) 4 Good Lateral Flexion Right (C3) 4 Good Scapula Strength Scapula Manual Muscle Testing Right Elevation (C4) 4- Good- Adduction 4 Good Abduction 4- Good- Depression 4- Good- Comments lower trapezius: 4-/5 Left Elevation (C4) 4+ Good+ Adduction 4 Good Abduction 4 Good Depression 4 Good Comments lower trapezius: 4-/5 Shoulder Strength Shoulder Manual Muscle Testing Right Flexion 4 Good Abduction (C5) 4 Good External Rotation 4+ Good+ Internal Rotation 4+ Good+ Left Flexion 4+ Good+ Abduction (C5) 4+ Good+ External Rotation 4+ Good+ Internal Rotation 4+ Good+ Elbow/Forearm Strength Elbow and Forearm Manual Muscle Testing Right Flexion (C6) 4+ Good+ Extension (C7) 4+ Good+ Left Flexion (C6) 4+ Good+ Extension (C7) 4+ Good+ PT-OP-Q Treatments Start: 10/11/24 18:52 Freq: Status: Active Protocol: Document 11/13/24 07:29 NM (Rec: 11/13/24 09:50 NM [id number]) Therapeutic Exercises Supine Exercises cervical rotation Side right Reps/Minutes 15 Comments following manual tx foam roller Supine Exercise Name HEP review: pec stretch Reps/Minutes 30 Comments edu not to squeeze scapula Standing Exercises rows Standing Exercise Name mid rows- HEP Side bilateral Resistance level 2 band Reps/Minutes 2x10 Comments cued form, scap motion, no shoulder elevation cervical isometrics Standing Exercise Name flex, ext, B rot, B lat flex- HEP Side bilateral Equipment Used at wall Reps/Minutes 10x2 Comments cued set up, execution; edu on rationale, pain free, submax push up plus Standing Exercise Name at wall- scap motion only, no elbow flex/ext- HEP Side bilateral Reps/Minutes 2x12 Comments cued form, execution c/ verbal /tactile cues Manual Therapy Treatment Consent Patient gave verbal consent for manual Yes treatment Soft Tissue Mobilization cervical spine Body Location LS, traps, CS paraspinals, pecs, rhomboids, post cuff Mobilization Type Rolling,Strumming,Sustained Pressure Intensity/Depth Moderate Body Position Sidelying Comments Fewer trigger points a rhomboids, LS, traps. Reduced with manual treatment Joint Mobilizations thoracic spine Joint T1-T6 Direction PA, rot Grade III Body Position Sitting Comments monitored for pain cervical spine Joint C2-C6 Direction lateral glides Grade III Body Position Hooklying Reps/Duration 2x30 ea Comments with functional rotation, less movement R>L. Monitored for pain scapular Joint adduction/retraction Grade III Body Position Sidelying Reps/Duration 2x30 ea Comments R side only. Monitored for pain, good feedback for stretching with depression PT-OP-T Assessment and Plan Start: 10/11/24 18:52 Freq: Status: Active Protocol: Document 11/13/24 07:29 NM (Rec: 11/13/24 09:50 NM [id number]) Physical Therapy Assessment Goals Three Impairment driving painful Short Term Goal (STG) Pt will be educated on sitting ergonomics in order to demonstrate improved symptom management 11/13/24: pt has been educated on drivign ergonomics and sitting ergonomics with handouts STG Duration 3 weeks MET Half-Way Goal (LTG) Pt will report <2/10 pain with driving > 60 minutes in order to demonstrate improved symptom management 11/13/24: pt reports able to drive > 30 min without discomfort but not for longer than 1 hour LTG Duration 8 weeks- ORIGINAL GOAL MET ; GOAL UPDATED Two Impairment NDI 18% impairment Half-Way Goal (LTG) Pt will reports <10% impairment on NDI in order to demonstrate improved symptom management, including sitting and standing tolerance 11/13/23: 10% impairment LTG Duration 8 weeks PROGRESSING One Impairment not performing HEP High Lighter Goal (LTG) Pt will be IND with HEP at least 3x/wk in order to maximize progression with PT and transition to maintenance upon discharge LTG Duration 8 weeks Progress Towards Goals Progress Towards Goals Progressing Toward Goals,Goals Met Assessment Summary Assessment Pt tolerated session well but reports no change in tightness at end of session. Initiated rows to address periscapular strengthening, cueing needed for form and execution especially to limit shoulder compensations and forward head positioning. Reviewed foam roller HEP to address pt concerns about HEP and comfort . Trialed and initiated cervical spine isometrics to create more stability at cervical spine, reduce tension on posterior chain. Trialed joint mobilizations to improve cervicothoracic mobility for improved ROM. Pt responded well to last session with manual treatment and would benefit from further manual- based session. Physical Therapy Plan Frequency and Duration Frequency of Treatment 1-2x/wk Duration of treatment (weeks) 8 Plan of Care Start Date 11/13/24 Plan of Care End Date 01/10/25 Therapeutic Interventions Therapeutic Interventions Balance Training,Canalithic Repositioning,Gait Training, Home Exercise Program,Joint Mobilizations,Manual Therapy, Neuromuscular Re-education, Orthotic/Prosthetic Management ,Patient/Caregiver Education, Self-Care/Home Management, Sensory Integration,Soft Tissue Mobilization,Taping, Therapeutic Activities, Therapeutic Exercises Modalities Cold Pack/Ice Massage,Electric Stimulation,Hot Packs, Traction- Mechanical, Ultrasound Next Visit Focus/Plan Next Note Type Treatment Note Next Visit Plan Discuss treatment plan and check to see if need progress note. Similar: Rows/low rows, wall plank vs push up etc, CS demarcus vs isot for muscle length, periscapulars at wall vs ball (Y<>W lift offs) STM and manual treatment to spine and ribs, scapular mobilization, R shoulder mobilization
--- NOTE | 2024-11-13 15:46 | PT.OPPOC ---
Physical, Occupational & Speech Therapy At [facility] Current Diagnoses Stiffness of right shoulder, not elsewhere classified (11/13/24) Stiffness of other specified joint, not elsewhere classified (11/13/24) Spinal stenosis, site unspecified (11/13/24) Radiculopathy, cervical region (11/13/24) Pain in thoracic spine (11/13/24) Weakness (11/13/24) Visit Care Team Role Provider Type Tasia Kellogg DO Attending Provider Physician Family Provider Primary Care Provider Referring Provider Specialty: Medical Address: [address] [place] [address], [address], [place], [address] Email: [email or web address] Plan Of Care PT-OP-B Current Condition Start: 10/11/24 18:52 Freq: Status: Active Protocol: Document 10/15/24 13:42 NM (Rec: 10/15/24 14:59 NM [id number]) Current Condition History of Current Condition Onset Date chronic; ongoing; most recent 08/19/24 Current Complaints pain, stiffness, tightness History of Current Condition Pt presents with R sided radicular symptoms. 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 [place] like it was just tightening up. She had an MRI, showing a pinched nerve. She will be seeing a digital media producer in November. About 3 weeks ago , she reports, that she had more time between when her pain would improve. She reports that 1 week ago, she continued to have less pain. Participates in pilates and yoga. Has tenderness over R scapula. She reports that she fell 6 years ago on her arm and caught herself, reports that would intermittently flare up but would go away with ibuprofen. Pt reports that the main trigger is driving. Pt denies numbness/ tingling, only pain shooting down her arm. She had an adjustment from Dr. Kellogg to address her ribs, which was initially painful; saw a massage therapist, which was also not helpful. Reports improvement in reaching especially behind back. 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 Hx herniated disc L4-5 Prior Treatments and Tests MRI cervical spine August 2024- Impression: 1. degenerative changes of the cervical spine as described above, 2. mild central canal stenosis at C5-C6, 3. moderate neural foraminal stenosis on the left at C5-C6 and right at C6-C7 Current Functional Impairments (Reported) Functional Limitations- Mobility/Gait sitting 1 hour (holiness) ice pack PT-OP-T Assessment and Plan Start: 10/11/24 18:52 Freq: Status: Active Protocol: Document 11/13/24 07:29 NM (Rec: 11/13/24 09:50 NM [id number]) Physical Therapy Assessment Goals Three Impairment driving painful Short Term Goal (STG) Pt will be educated on sitting ergonomics in order to demonstrate improved symptom management 11/13/24: pt has been educated on drivign ergonomics and sitting ergonomics with handouts STG Duration 3 weeks MET [facility] Goal (LTG) Pt will report <2/10 pain with driving > 60 minutes in order to demonstrate improved symptom management 11/13/24: pt reports able to drive > 30 min without discomfort but not for longer than 1 hour LTG Duration 8 weeks- ORIGINAL GOAL MET ; GOAL UPDATED Two Impairment NDI 18% impairment Environmental Auditor Goal (LTG) Pt will reports <10% impairment on NDI in order to demonstrate improved symptom management, including sitting and standing tolerance 11/13/23: 10% impairment LTG Duration 8 weeks PROGRESSING One Impairment not performing HEP Environmental Auditor Goal (LTG) Pt will be IND with HEP at least 3x/wk in order to maximize progression with PT and transition to maintenance upon discharge LTG Duration 8 weeks Progress Towards Goals Progress Towards Goals Progressing Toward Goals,Goals Met Assessment Summary Assessment Pt has been seen x4 visit since evaluation for neck pain in September 2024. She is progressing toward goals, meeting several but is not completely independent with symptom management yet. Further auth requested. Pt would continue to benefit from skilled PT for progressive mobility and symptom management in order to improve activity tolerance and quality of life. Physical Therapy Plan Frequency and Duration Frequency of Treatment 1-2x/wk Duration of treatment (weeks) 8 Plan of Care Start Date 11/13/24 Plan of Care End Date 01/10/25 Therapeutic Interventions Therapeutic Interventions Balance Training,Canalithic Repositioning,Gait Training, Home Exercise Program,Joint Mobilizations,Manual Therapy, Neuromuscular Re-education, Orthotic/Prosthetic Management ,Patient/Caregiver Education, Self-Care/Home Management, Sensory Integration,Soft Tissue Mobilization,Taping, Therapeutic Activities, Therapeutic Exercises Modalities Cold Pack/Ice Massage,Electric Stimulation,Hot Packs, Traction- Mechanical, Ultrasound Next Visit Focus/Plan Next Note Type Treatment Note Next Visit Plan Discuss treatment plan and check to see if need progress note. Similar: Rows/low rows, wall plank vs push up etc, CS demarcus vs isot for muscle length, periscapulars at wall vs ball (Y<>W lift offs) STM and manual treatment to spine and ribs, scapular mobilization, R shoulder mobilization Plan of Care Dates Plan of Care Start Date 11/13/24 Plan of Care End Date 01/10/25 Electronically Signed by: Cindi Easley, PT 11/15/24 0944 If you are in agreement with this Plan of Care, please return a signed and dated copy. I have reviewed this Plan of Care and certify that the skilled therapy services above are required to meet the patient?s needs. Physician Signature Date Printed Name and Credentials Clinical Instructor Signature Printed Name and Credentials
--- NOTE | 2024-12-03 10:03 | PT.OTN ---
Current Diagnoses Stiffness of right shoulder, not elsewhere classified (12/03/24) Stiffness of other specified joint, not elsewhere classified (12/03/24) Spinal stenosis, site unspecified (12/03/24) Radiculopathy, cervical region (12/03/24) Pain in thoracic spine (12/03/24) Weakness (12/03/24) Physical Therapy Treatment Note PT-OP-A Visit Information Start: 10/11/24 18:52 Freq: Status: Active Protocol: Document 12/03/24 08:17 NM (Rec: 12/03/24 09:03 NM [id number]) Out-Patient Physical Therapy Visit Information Visit Information Visit Type Treatment Note Visit Start Time 08:18 Visit Stop Time 09:00 Visit Number 6 (11/08 PN) Evaluation Information Evaluation Date 10/15/24 Precautions Precautions Hx of cervical stenosis PT-OP-B Current Condition Start: 10/11/24 18:52 Freq: Status: Active Protocol: Document 10/15/24 13:42 NM (Rec: 10/15/24 14:59 NM [id number]) Current Condition History of Current Condition Onset Date chronic; ongoing; most recent 08/19/24 Current Complaints pain, stiffness, tightness History of Current Condition Pt presents with R sided radicular symptoms. 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 [place] like it was just tightening up. She had an MRI, showing a pinched nerve. She will be seeing a gypsum calciner in November. About 3 weeks ago , she reports, that she had more time between when her pain would improve. She reports that 1 week ago, she continued to have less pain. Participates in pilates and yoga. Has tenderness over R scapula. She reports that she fell 6 years ago on her arm and caught herself, reports that would intermittently flare up but would go away with ibuprofen. Pt reports that the main trigger is driving. Pt denies numbness/ tingling, only pain shooting down her arm. She had an adjustment from Dr. Kellogg to address her ribs, which was initially painful; saw a massage therapist, which was also not helpful. Reports improvement in reaching especially behind back. 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 Hx herniated disc L4-5 Prior Treatments and Tests MRI cervical spine August 2024- Impression: 1. degenerative changes of the cervical spine as described above, 2. mild central canal stenosis at C5-C6, 3. moderate neural foraminal stenosis on the left at C5-C6 and right at C6-C7 Current Functional Impairments (Reported) Functional Limitations- Mobility/Gait sitting 1 hour (episcopal) ice pack PT-OP-C Subjective Start: 10/11/24 18:52 Freq: Status: Active Protocol: Document 12/03/24 08:17 NM (Rec: 12/03/24 09:03 NM [id number]) OP-PT Subjective Patient Comments Patient Comments Pt reports doing well overall. States that she drove to [place] and sat at [employer] for 3 hours. Reports that exercises are helping, which decrease symptoms. Has done HEP. Overall, reports improving. Scheduled massage next week. Still doing pilates and slow flow yoga, more challenging 3x/wk. Wants to add in hand weights, wants to build upper body strength. PT-OP-E Functional Tests Start: 10/11/24 18:52 Freq: Status: Active Protocol: Document 10/15/24 13:42 NM (Rec: 10/15/24 14:59 NM [id number]) Functional Tests Apley's Scratch Test Action 1- Left post cuff Action 1- Right AC joint anteriorly Action 2- Left C7 Action 2- Right C7 Action 3- Left T7 Action 3- Right T10 PT-OP-F Manual Assessment Start: 10/11/24 18:52 Freq: Status: Active Protocol: Document 10/15/24 13:42 NM (Rec: 10/15/24 14:59 NM [id number]) Manual Assessments Soft Tissue Assessment Soft Tissue Mobility Assessment Tightness at cervical spine paraspinals, trapezius, levator scapula, rhomboids Joint Mobility Assessment Joint Mobility Assessment Medial border of scapula to spine: 9 cm R, 7 cm L Hypomobility of cervical spine with PA springing and lateral gliding Rib elevation Other Manual Assessments Other Manual Assessments Cranial nerves: intact 1, 2, 3 , 4, 5, 6, 7, 8, 10, 11, 12 PT-OP-H Neuro Start: 10/11/24 18:52 Freq: Status: Active Protocol: Document 10/15/24 13:42 NM (Rec: 10/15/24 14:59 NM [id number]) Sensation Evaluation Comments Summary Comments BUE equally intact to light touch sensation V1-V3 equally intact to light touch sensation PT-OP-J Posture/Palpation/Skin Start: 10/11/24 18:52 Freq: Status: Active Protocol: Document 10/15/24 13:42 NM (Rec: 10/15/24 15:15 NM [id number]) Posture Evaluation Position Standing Head/C-Spine Posture Forward Head Shoulder Posture (L) Rounded,(R) Rounded,(L) Forward,(R) Forward,(L) Elevated Scapula Posture (L) Neutral,(R) Protracted Pelvis Posture Anteriorly Tilted Knee Posture (L) Genu Valgus,(R) Genu Valgus Palpation Assessment Location cervical spine Palpation Details No tenderness with midline or transverse process palpation Tightness of cervical paraspinals, several trigger points distally R scapula Palpation Details Tightness and mild tenderness along periscapulars and rotator cuff, lat PT-OP-K Range of Motion Start: 10/11/24 18:52 Freq: Status: Active Protocol: Document 11/13/24 07:29 NM (Rec: 11/13/24 09:50 NM [id number]) Cervical Spine Range of Motion Cervical Spine Active Degrees Flexion 60 Extension 40 Rotation Left 75 Rotation Right 75 Lateral Flexion Left 40 Lateral Flexion Right 40 Comments (+): pain w/ flexion Thoracic spine: 100% all direction, lateral flexion with discomfort L 11/13/24: 65 deg R and L rot; no change other ROM PT-OP-L Special Tests Start: 10/11/24 18:52 Freq: Status: Active Protocol: Document 10/18/24 08:19 NM (Rec: 10/18/24 09:00 NM [id number]) Special Tests Cervical Spine Special Tests Vertebral artery screen Test Results intact cranial and peripheral nerves, no symptoms with positional testing Comments cardiac and carotid ausculatation/palpation WFL, BP 121/78 Transverse Ligament Test Results - Alar Ligament Test Results - Traction Test Results + Spurling's Test Test Results - PT-OP-M Strength Start: 10/11/24 18:52 Freq: Status: Active Protocol: Document 10/15/24 13:42 NM (Rec: 10/15/24 14:59 NM [id number]) Cervical Spine Strength Cervical Spine Manual Muscle Testing Flexion (C1-2) 4 Good Extension 4 Good Rotation Left 4 Good Rotation Right 4 Good Lateral Flexion Left (C3) 4 Good Lateral Flexion Right (C3) 4 Good Scapula Strength Scapula Manual Muscle Testing Right Elevation (C4) 4- Good- Adduction 4 Good Abduction 4- Good- Depression 4- Good- Comments lower trapezius: 4-/5 Left Elevation (C4) 4+ Good+ Adduction 4 Good Abduction 4 Good Depression 4 Good Comments lower trapezius: 4-/5 Shoulder Strength Shoulder Manual Muscle Testing Right Flexion 4 Good Abduction (C5) 4 Good External Rotation 4+ Good+ Internal Rotation 4+ Good+ Left Flexion 4+ Good+ Abduction (C5) 4+ Good+ External Rotation 4+ Good+ Internal Rotation 4+ Good+ Elbow/Forearm Strength Elbow and Forearm Manual Muscle Testing Right Flexion (C6) 4+ Good+ Extension (C7) 4+ Good+ Left Flexion (C6) 4+ Good+ Extension (C7) 4+ Good+ PT-OP-Q Treatments Start: 10/11/24 18:52 Freq: Status: Active Protocol: Document 12/03/24 08:17 NM (Rec: 12/03/24 09:03 NM [id number]) Therapeutic Exercises Sidelying Exercises shoulder trio Sidelying Exercise Name flex, abd- HEP review Side bilateral Resistance 1# db Reps/Minutes 10 ea side Comments painfree; cued for form open book Sidelying Exercise Name HEP review Side bilateral Reps/Minutes 10 ea Standing Exercises raises Standing Exercise Name trialed in PT- 1. front, 2. lateral- added HEP Side bilateral Resistance 1# Equipment Used supported at wall with towel roll Reps/Minutes 8 ea Comments pain free; no UT comp, edu to avoid shoulder shrug for HEP push up plus Standing Exercise Name at wall- scap motion only, no elbow flex/ext- HEP Side bilateral Reps/Minutes 2x10 Comments improved form, less UT comp today Other Exercises mobilization with movement Other Exercise Name 1. shoulder rolls, 2. shoulder shrugs w/ relaxation Side bilateral Resistance 5# db ea hand Equipment Used towel roll behind head Reps/Minutes 12 ea Comments cued form, breathwork for shoulder relaxation Manual Therapy Treatment Consent Patient gave verbal consent for manual Yes treatment Soft Tissue Mobilization cervical spine Body Location LS, traps, CS paraspinals, pecs, rhomboids, post cuff Mobilization Type Rolling,Strumming,Sustained Pressure Intensity/Depth Moderate Body Position Sidelying Comments Fewer trigger points a rhomboids, LS, traps. continued to reduce with manual treatment Joint Mobilizations cervical spine Joint C2-C6 Direction lateral glides Grade III Body Position Hooklying Reps/Duration 2x30 ea Comments No tenderness, improved mobility and rotation today PT-OP-T Assessment and Plan Start: 10/11/24 18:52 Freq: Status: Active Protocol: Document 12/03/24 08:17 NM (Rec: 12/03/24 09:03 NM [id number]) Physical Therapy Assessment Goals Three Impairment driving painful Short Term Goal (STG) Pt will be educated on sitting ergonomics in order to demonstrate improved symptom management 11/13/24: pt has been educated on drivign ergonomics and sitting ergonomics with handouts STG Duration 3 weeks MET Floriculture Professor Goal (LTG) Pt will report <2/10 pain with driving > 60 minutes in order to demonstrate improved symptom management 11/13/24: pt reports able to drive > 30 min without discomfort but not for longer than 1 hour LTG Duration 8 weeks- ORIGINAL GOAL MET ; GOAL UPDATED Two Impairment NDI 18% impairment Floriculture Professor Goal (LTG) Pt will reports <10% impairment on NDI in order to demonstrate improved symptom management, including sitting and standing tolerance 11/13/23: 10% impairment LTG Duration 8 weeks PROGRESSING One Impairment not performing HEP Fdc Goal (LTG) Pt will be IND with HEP at least 3x/wk in order to maximize progression with PT and transition to maintenance upon discharge LTG Duration 8 weeks Assessment Summary Assessment Pt had good tolerance for progressions with ther-ex during sessions. Able to progress with resistance from sidelying shoulder strengthening to standing with postural support at wall with resistance. Cueing needed to limit trap compensations. Trialed trap mobilization with movement to address scapular relaxation and to decrease tension. Fewer trigger points present today. Progressing toward goals. Educated on activity modification and postural awareness during manual to continue to address pt concerns of neck tension with driving. Pt progressing well toward goals but would benefit from skilled PT for direction as pt begins strengthening program and for further body mechanics/ activity tolerance training in order to improve symptom management as pt returning to recreational activities. Physical Therapy Plan Frequency and Duration Frequency of Treatment 1-2x/wk Duration of treatment (weeks) 8 Plan of Care Start Date 11/13/24 Plan of Care End Date 03/14/25 Therapeutic Interventions Therapeutic Interventions Balance Training,Canalithic Repositioning,Gait Training, Home Exercise Program,Joint Mobilizations,Manual Therapy, Neuromuscular Re-education, Orthotic/Prosthetic Management ,Patient/Caregiver Education, Self-Care/Home Management, Sensory Integration,Soft Tissue Mobilization,Taping, Therapeutic Activities, Therapeutic Exercises Modalities Cold Pack/Ice Massage,Electric Stimulation,Hot Packs, Traction- Mechanical, Ultrasound Next Visit Focus/Plan Next Note Type Treatment Note Next Visit Plan Assess tolerance to resistance . Progress strengthening: lats , rows, presses. Similar: Rows/low rows, wall plank vs push up etc, CS demarcus vs isot for muscle length, periscapulars at wall vs ball (Y<>W lift offs) STM and manual treatment to spine and ribs, scapular mobilization, R shoulder mobilization
--- NOTE | 2024-12-09 11:26 | PT.OTN ---
Current Diagnoses Stiffness of right shoulder, not elsewhere classified (12/09/24) Stiffness of other specified joint, not elsewhere classified (12/09/24) Spinal stenosis, site unspecified (12/09/24) Radiculopathy, cervical region (12/09/24) Pain in thoracic spine (12/09/24) Weakness (12/09/24) Physical Therapy Treatment Note PT-OP-A Visit Information Start: 10/11/24 18:52 Freq: Status: Active Protocol: Document 12/09/24 09:04 NM (Rec: 12/09/24 09:45 NM [id number]) Out-Patient Physical Therapy Visit Information Visit Information Visit Type Discharge Summary Visit Start Time 09:05 Visit Stop Time 09:45 Visit Number 7 Evaluation Information Evaluation Date 10/15/24 Precautions Precautions Hx of cervical stenosis PT-OP-B Current Condition Start: 10/11/24 18:52 Freq: Status: Active Protocol: Document 10/15/24 13:42 NM (Rec: 10/15/24 14:59 NM [id number]) Current Condition History of Current Condition Onset Date chronic; ongoing; most recent 08/19/24 Current Complaints pain, stiffness, tightness History of Current Condition Pt presents with R sided radicular symptoms. 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 [place] like it was just tightening up. She had an MRI, showing a pinched nerve. 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 About 3 weeks ago , she reports, that she had more time between when her pain would improve. She reports that 1 week ago, she continued to have less pain. Participates in pilates and yoga. Has tenderness over R scapula. She reports that she fell 6 years ago on her arm and caught herself, reports that would intermittently flare up but would go away with ibuprofen. Pt reports that the main trigger is driving. Pt denies numbness/ tingling, only pain shooting down her arm. She had an adjustment from Dr. Kellogg to address her ribs, which was initially painful; saw a massage therapist, which was also not helpful. Reports improvement in reaching especially behind back. 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 Hx herniated disc L4-5 Prior Treatments and Tests MRI cervical spine August 2024- Impression: 1. degenerative changes of the cervical spine as described above, 2. mild central canal stenosis at C5-C6, 3. moderate neural foraminal stenosis on the left at C5-C6 and right at C6-C7 Current Functional Impairments (Reported) Functional Limitations- Mobility/Gait sitting 1 hour (jain) ice pack PT-OP-C Subjective Start: 10/11/24 18:52 Freq: Status: Active Protocol: Document 12/09/24 09:04 NM (Rec: 12/09/24 09:45 NM [id number]) OP-PT Subjective Patient Comments Patient Comments Pt sees Dr. Heck tomorrow ( school administrator). Pt states that if she can increase weights if needed, then feels ok to discharge from PT. She reports scapular pain not completely gone. Sees telehealth visit with PCP. Pt wanting to discharge from PT today, feels like she can continue to work toward goals on own and is compliant with HEP. PT-OP-E Functional Tests Start: 10/11/24 18:52 Freq: Status: Active Protocol: Document 10/15/24 13:42 NM (Rec: 10/15/24 14:59 NM [id number]) Functional Tests Apley's Scratch Test Action 1- Left post cuff Action 1- Right AC joint anteriorly Action 2- Left C7 Action 2- Right C7 Action 3- Left T7 Action 3- Right T10 PT-OP-F Manual Assessment Start: 10/11/24 18:52 Freq: Status: Active Protocol: Document 10/15/24 13:42 NM (Rec: 10/15/24 14:59 NM [id number]) Manual Assessments Soft Tissue Assessment Soft Tissue Mobility Assessment Tightness at cervical spine paraspinals, trapezius, levator scapula, rhomboids Joint Mobility Assessment Joint Mobility Assessment Medial border of scapula to spine: 9 cm R, 7 cm L Hypomobility of cervical spine with PA springing and lateral gliding Rib elevation Other Manual Assessments Other Manual Assessments Cranial nerves: intact 1, 2, 3 , 4, 5, 6, 7, 8, 10, 11, 12 PT-OP-H Neuro Start: 10/11/24 18:52 Freq: Status: Active Protocol: Document 10/15/24 13:42 NM (Rec: 10/15/24 14:59 NM [id number]) Sensation Evaluation Comments Summary Comments BUE equally intact to light touch sensation V1-V3 equally intact to light touch sensation PT-OP-J Posture/Palpation/Skin Start: 10/11/24 18:52 Freq: Status: Active Protocol: Document 10/15/24 13:42 NM (Rec: 10/15/24 15:15 NM [id number]) Posture Evaluation Position Standing Head/C-Spine Posture Forward Head Shoulder Posture (L) Rounded,(R) Rounded,(L) Forward,(R) Forward,(L) Elevated Scapula Posture (L) Neutral,(R) Protracted Pelvis Posture Anteriorly Tilted Knee Posture (L) Genu Valgus,(R) Genu Valgus Palpation Assessment Location cervical spine Palpation Details No tenderness with midline or transverse process palpation Tightness of cervical paraspinals, several trigger points distally R scapula Palpation Details Tightness and mild tenderness along periscapulars and rotator cuff, lat PT-OP-K Range of Motion Start: 10/11/24 18:52 Freq: Status: Active Protocol: Document 12/09/24 09:04 NM (Rec: 12/09/24 09:45 NM [id number]) Cervical Spine Range of Motion Cervical Spine Active Degrees Flexion 60 Extension 40 Rotation Left 80 Rotation Right 80 Lateral Flexion Left 40 Lateral Flexion Right 40 Comments (+): pain w/ flexion Thoracic spine: 100% all direction, lateral flexion with discomfort L 11/13/24: 65 deg R and L rot; no change other ROM 12/09/24: 80 deg rot, 40 deg LF B PT-OP-L Special Tests Start: 10/11/24 18:52 Freq: Status: Active Protocol: Document 10/18/24 08:19 NM (Rec: 10/18/24 09:00 NM [id number]) Special Tests Cervical Spine Special Tests Vertebral artery screen Test Results intact cranial and peripheral nerves, no symptoms with positional testing Comments cardiac and carotid ausculatation/palpation WFL, BP 121/78 Transverse Ligament Test Results - Alar Ligament Test Results - Traction Test Results + Spurling's Test Test Results - PT-OP-M Strength Start: 10/11/24 18:52 Freq: Status: Active Protocol: Document 10/15/24 13:42 NM (Rec: 10/15/24 14:59 NM [id number]) Cervical Spine Strength Cervical Spine Manual Muscle Testing Flexion (C1-2) 4 Good Extension 4 Good Rotation Left 4 Good Rotation Right 4 Good Lateral Flexion Left (C3) 4 Good Lateral Flexion Right (C3) 4 Good Scapula Strength Scapula Manual Muscle Testing Right Elevation (C4) 4- Good- Adduction 4 Good Abduction 4- Good- Depression 4- Good- Comments lower trapezius: 4-/5 Left Elevation (C4) 4+ Good+ Adduction 4 Good Abduction 4 Good Depression 4 Good Comments lower trapezius: 4-/5 Shoulder Strength Shoulder Manual Muscle Testing Right Flexion 4 Good Abduction (C5) 4 Good External Rotation 4+ Good+ Internal Rotation 4+ Good+ Left Flexion 4+ Good+ Abduction (C5) 4+ Good+ External Rotation 4+ Good+ Internal Rotation 4+ Good+ Elbow/Forearm Strength Elbow and Forearm Manual Muscle Testing Right Flexion (C6) 4+ Good+ Extension (C7) 4+ Good+ Left Flexion (C6) 4+ Good+ Extension (C7) 4+ Good+ PT-OP-Q Treatments Start: 10/11/24 18:52 Freq: Status: Active Protocol: Document 12/09/24 09:04 NM (Rec: 12/09/24 09:45 NM [id number]) Therapeutic Exercises Sitting Exercises cervical spine stretches Sitting Exercise Name 1. trap, 2. LS, 3. scalenes Side bilateral Equipment Used tension on seat, no overpress Reps/Minutes 4x30 ea Comments cued form, setup; pain free; inc time needed for cues/setup Standing Exercises periscapular activation Standing Exercise Name @ wall: W<>Y Side bilateral Equipment Used towel roll at head Reps/Minutes 10 ea Comments cued set up Other Exercises quadruped rows Other Exercise Name 1. cervical retraction, 2. rows Side bilateral Resistance 5# Equipment Used mat on floor Reps/Minutes 1. 15x2, 2. Comments cued set up; pain free Manual Therapy Treatment Consent Patient gave verbal consent for manual Yes treatment Soft Tissue Mobilization cervical spine Body Location LS, traps, CS paraspinals, pecs, rhomboids, post cuff Mobilization Type Rolling,Strumming,Sustained Pressure Intensity/Depth Moderate Body Position Sitting Comments Trigger point still present at levator scap and trap, reduced with manual treatment but not resolved. MWM for LS with cervical rotation and flexion B PT-OP-T Assessment and Plan Start: 10/11/24 18:52 Freq: Status: Active Protocol: Document 12/09/24 09:04 NM (Rec: 12/09/24 09:45 NM [id number]) Physical Therapy Assessment Goals Three Impairment driving painful Short Term Goal (STG) Pt will be educated on sitting ergonomics in order to demonstrate improved symptom management 11/13/24: pt has been educated on drivign ergonomics and sitting ergonomics with handouts STG Duration 3 weeks MET Fdc Goal (LTG) Pt will report <2/10 pain with driving > 60 minutes in order to demonstrate improved symptom management 11/13/24: pt reports able to drive > 30 min without discomfort but not for longer than 1 hour 12/09/24: pt reports able to drive 1 hour without increased discomfort but not longer LTG Duration 8 weeks- ORIGINAL GOAL MET ; GOAL UPDATED- PARTIALLY MET Two Impairment NDI 18% impairment Director Of Curriculum And Instruction Goal (LTG) Pt will reports <10% impairment on NDI in order to demonstrate improved symptom management, including sitting and standing tolerance 11/13/23: 10% impairment 12/09/24: pt did not complete NDI for final assessment but improving at last PN LTG Duration 8 weeks PARTIALLY MET; jenna progression toward goal One Impairment not performing HEP Fdc Goal (LTG) Pt will be IND with HEP at least 3x/wk in order to maximize progression with PT and transition to maintenance upon discharge 12/09/24: compliant with HEP; progressive independence, issued progressions with HEP bands LTG Duration 8 weeks MET Assessment Summary Assessment Pt tolerated session well. No pain with stretching. Continues to have trigger points at levator scapula but reduced with manual therapy. Initiated gentle cervical spine stretching to lengthen traps, levator scapula. Switched to chair for comfort. Trialed quadruped cervical retraction and rows for improved postural control and strength for car rides. Pt responds well to increased resistance. Progressed to wall periscapular for further postural strengthening. Good feedback to activity, prn cues for correct execution. Physical Therapy Plan Frequency and Duration Frequency of Treatment 1-2x/wk Duration of treatment (weeks) 8 Plan of Care Start Date 11/13/24 Plan of Care End Date 01/10/25 Therapeutic Interventions Therapeutic Interventions Balance Training,Canalithic Repositioning,Gait Training, Home Exercise Program,Joint Mobilizations,Manual Therapy, Neuromuscular Re-education, Orthotic/Prosthetic Management ,Patient/Caregiver Education, Self-Care/Home Management, Sensory Integration,Soft Tissue Mobilization,Taping, Therapeutic Activities, Therapeutic Exercises Modalities Cold Pack/Ice Massage,Electric Stimulation,Hot Packs, Traction- Mechanical, Ultrasound Discharge Physical Therapy Discharge Reasons Patient Request Discharge Comments Goals met or partially met. Pt demos progression toward all. Minimal limitations in ADL/ IADLS. Pt compliant with HEP. PT and pt discussed discharge to maintenance program; education provided on returning to PT or for further assessment from PCP if symptoms return, change, or worsen. Pt will be discharge to maintenance program at her request. Next Visit Focus/Plan Next Note Type Discharge Summary Next Visit Plan discharge from PT
== END 2024-12-12 15:15 | disposition home or self-care (01) ==
LOC: PHYS 09:00
PROVIDERS: Family Provider Family Medicine; PCP Family Medicine; Referring Provider Family Medicine; Visit Provider Family Medicine
DX: M54.12 Radiculopathy, cervical region (principal); M54.6 Pain in thoracic spine; M48.00 Spinal stenosis, site unspecified; R53.1 Weakness; M25.69 Stiffness of other specified joint, not elsewhere classified; M25.611 Stiffness of right shoulder, not elsewhere classified
CPT/HCPCS: 97110; 97140; 97161; 97535

== ENCOUNTER 2025-08-22 20:02 | Emergency (ER) | payer OTHER, SELFPAY ==
[2025-08-22 20:08] VITALS: BP 121/66; PULSE 90; RESP 18; TEMP 36.9; O2SAT 95; BMI 27.8
--- NOTE | 2025-08-22 20:12 | DI.RAD.S_ITS ---
PROCEDURE: XR FINGER LT MIN 2V INDICATIONS: laceration TECHNIQUE: AP hand, 2 views of the 4th finger(s) acquired. COMPARISON: None. FINDINGS: Bones: No fractures seen. No dislocations. No suspicious bony lesions. Soft tissues: No suspicious soft tissue calcifications. No radiopaque foreign body. IMPRESSION: No acute bony abnormality. If clinically indicated consider follow-up radiographs in 10-14 days. Dictated by: Pedro Bueno M.D. on 08/22/2025 at 21:50 Approved by: Pedro Bueno M.D. on 08/22/2025 at 21:51
--- NOTE | 2025-08-22 23:35 | ED.WOUNDLAC ---
HPI - Wound/Laceration General Chief Complaint: Wound/Laceration Stated Complaint: L ring finger laceration Time Seen by Provider: 08/22/25 23:31 Source: patient Mode of arrival: Ambulatory History of Present Illness HPI narrative: 65-year-old female cut the end of her left ring finger with a kitchen knife this evening while preparing food. No other injuries. She does not take blood thinner medications. Last tetanus shot about 3 years ago. Able to fully extend and flex her finger. No bruising to nail, fingernail intact. Related Data Home Medications ?Medication ?Instructions ?Recorded ?Confirmed [id number] tablet tab PO 02/17/23 06/23/25 cholecalciferol (vitamin D3) 50 50 mcg PO DAILY 02/17/23 06/23/25 mcg (2,000 unit) capsule Previous Rx's ?Medication ?Instructions ?Recorded zolpidem 5 mg tablet 5 mg PO BEDTIME PRN insomnia #30 06/23/25 tabs venlafaxine 50 mg tablet 50 mg PO DAILY #90 tabs 07/29/25 clindamycin HCl 300 mg capsule 300 mg PO Q6H Dental infection 7 08/23/25 days #28 caps Allergies Allergy/AdvReac Type Severity Reaction Status Date / Time Penicillins Allergy Swelling Verified 08/22/25 20:08 of the Eye Patient History Medical History (Updated 08/23/25 @ 00:28 by Gonzalo De Los Santos MD) Trochanteric bursitis of both hips Left forearm pain Chronic back pain (~1977) Chicken pox (~1961) Cyst, meniscus, knee Meniscus, medial, posterior horn derangement Anxiety (~2002) Bursitis disorder Surgical History Anesthesia History of knee surgery History of bunionectomy Family History Mother History of heart disease Arthritis Grandfather Arthritis Social History (Updated 06/23/25 @ 07:58 by Radha Shirley CMA) marital status: number of children: 3 household members: spouse caregiver/support person: Yes housing: house pets and animals: Yes education level: master's degree occupational status: other current occupational exposures/hazards: No bea/sabianist: Cheondoism special bea needs: Yes sexual history: Monogamous leisure activities: sports, exercise, clubs, music, reading and volunteer work seatbelt use: always helmet use: Yes water heater temp set < 120 deg: Yes working smoke detector in home: Yes fire extinguisher in home: Yes carbon monox detector in home: Yes firearms in home: Yes firearms unloaded and locked: Yes do you feel safe at home: Yes Smoking Status: Never smoker alcohol intake: current (3-4 drinks per week ) substance use type: prescription drug during the past year weight has: remained stable well-balanced diet: daily or most days daily servings fruits/ve-4 caffeine: Yes eating out: rarely or never Type(s) of exercise: walking, regular exercise and yoga frequency: 3-4 times per week duration: 45-60 minutes/day Smoking Status: Never smoker alcohol intake frequency: a few times a week Exam Narrative Exam Narrative: GENERAL: Well-developed patient, in mild distress. HEAD: Atraumatic. Normocephalic. EYES: Pupils equal round and reactive. Extraocular motions intact. No scleral icterus. No injection or drainage. ENT: Nose without bleeding, purulent drainage. Throat without erythema, tonsillar hypertrophy or exudate. Airway patent. NECK: Trachea midline. Non tender CARDIOVASCULAR: Regular rate and rhythm without murmurs, gallops, or rubs. RESPIRATORY: Clear to auscultation. Breath sounds equal bilaterally. No wheezes, rales, or rhonchi. GASTROINTESTINAL: Abdomen soft, non-tender, nondistended. EXTREMITIES: Left ring finger laceration radial aspect along the fingernail, fingernail has slight loosening, without obvious subungual hematoma, curvilinear flap laceration extension, 1.5 cm total length BACK: Nontender without deformity or crepitance. No flank tenderness. NEURO: AOx3. Motor functions grossly nonfocal. SKIN: No rash or erythema of visible areas Initial Vital Signs Initial Vital Signs: Vital Signs Temperature 98.5 F 08/22/25 20:08 Pulse Rate 90 08/22/25 20:08 Respiratory Rate 18 08/22/25 20:08 Blood Pressure 121/66 08/22/25 20:08 Pulse Oximetry 95 08/22/25 20:08 Oxygen Delivery Method Room Air 08/22/25 20:08 Procedures Laceration Repair Laceration 1: Time of procedure: 00:30 Site: hand (Left ring finger) Side (If applicable): left Size (cm): 1.5 (Curvilinear flap laceration with component along the lateral edge fingernail) Description: flap Depth: simple, single layer Local Anesthetic: lidocaine 1% (Rusty digital block with good effect) Amount of anesthesia used (mL): 2 Pre-repair: wound explored and irrigated extensively Skin layer closed with: nylon Skin layer suture size: 4-0 (One stitch through nail into adjacent tissue, other simple stitches tacked down interrupted simple stitches., total of 3 simple sutures placed.) Number of sutures: 3 Technique: simple, interrupted Course Orders Ordered: ED Orders 08/22/25 20:12 XR finger LT min 2V Stat Discontinued Medications Hydrocodone Bitart/Acetaminophen (Hydrocodone/Acet 5/325 Tablet) 1 tab PO NOW ONE Stop: 08/23/25 00:25 Last Admin: 08/23/25 00:52 Dose: Not Given Documented By: HNG Hydrocodone Bitart/Acetaminophen (Hydrocodone/Acet 5/325 Prepack) 1 bottle MISC DIRECTED ONE Stop: 08/23/25 00:25 Last Admin: 08/23/25 00:39 Dose: 1 bottle Documented By: SCOOBY Clindamycin HCl (Clindamycin 150 Mg Capsule) 300 mg PO NOW ONE Stop: 08/23/25 00:25 Last Admin: 08/23/25 00:39 Dose: 300 mg Documented By: SCOOBY Vital Signs Vital signs: Vital Signs - 8 hr 08/22/25 20:08 08/23/25 00:59 Temperature 98.5 F Pulse Rate 90 73 Respiratory Rate 18 16 Blood Pressure 121/66 159/74 H Pulse Oximetry 95 95 Oxygen Delivery Method Room Air Room Air MDM - Wound/Laceration MDM Narrative Medical decision making narrative: Kitchen knife laceration to the radial aspect 4th finger tip, linear component along the nail margin, flap laceration extending radial lateral surface. No subungual hematoma. Tacked down sutures x3, see procedure note, 1 of the sutures was through the fingernail to the adjacent tissue. X-ray negative for fractures/foreign body. Slight nail loosening, patient informed she may lose the fingernail. Deeper wound in to sulcus of the nailbed, might be at increased risk of infection. History of penicillin allergy, unclear about cephalosporins. Oral clindamycin dose given, prescription for further clindamycin. Nonstick dressing finger gauze wrap. Wound check advised with PCP on Monday. May also consider orthopedic surgery follow up, given clinic contact information for orthopedic surgeon on-call Dr. Lieberman Discharge Plan Departure Patient Disposition: Home Clinical Impression: Laceration of left ring finger Activity Restrictions/Additional Instructions: Kitchen knife laceration to the left ring finger, along the nail, some loosening of the nail, the nail may end up falling off at some later time. Rusty digital block with good effect for numbing was injected. One suture was placed through the nail to the adjacent tissue to help it hold toward the nailbed. Two other stitches were used to help close the flap. Sometimes skin flaps do not take well, and can slough off. Wound might be at increased risk of infection. History of penicillin allergy. Oral dose of clindamycin antibiotic given, prescription for further clindamycin sent to your pharmacy. Wound check advised on Monday with your regular provider. Contact information also provided for orthopedic surgery if you prefer to have orthopedic surgery follow up. Office contact information provided. Prescriptions: New clindamycin HCl 300 mg capsule 300 mg PO Q6H 7 Days Qty: 28 0RF No Action venlafaxine 50 mg tablet 50 mg PO DAILY Qty: 90 1RF zolpidem 5 mg tablet 5 mg PO BEDTIME PRN (Reason: insomnia) Qty: 30 2RF [id number] Tablet PO cholecalciferol (vitamin D3) 50 mcg (2,000 unit) capsule 50 mcg PO DAILY Referrals: Barb Lieberman DO [Physician, Orthopedic Surgery] Tasia Kellogg DO [Primary Care Provider, Medical] Stand Alone Forms: Patient Portal/API
[2025-08-23] MEDS: CLINDAMYCIN 150 MG CAPSULE 300 MG PO (00:39)
[2025-08-23 00:59] VITALS: BP 159/74; PULSE 73; RESP 16; O2SAT 95
== END 2025-08-23 01:01 | disposition home or self-care (01) ==
PROVIDERS: Emergency Provider Emergency Medicine; Family Provider Family Medicine; PCP Family Medicine
DX: S61.315A Laceration without foreign body of left ring finger with damage to nail, initial encounter (principal); W26.0XXA Contact with knife, initial encounter; Y93.G3 Activity, cooking and baking
CPT/HCPCS: 12001; 73140; 99283